=== PATIENT | male | born 1955 | race American Indian/Alaskan Native ===

== ENCOUNTER 2019-07-21 14:42 | Emergency (ER) | payer OTHER ==
[2019-07-21 15:20] VITALS: BP 138/87
[2019-07-21 15:47] LABS: Basophils % (Auto) 0.3 % (0.0-1.8); Hematocrit 40.3 % (35.5-45.6); Hemoglobin 13.5 gm/dl (11.8-15.2); Lymphocytes # (Auto) 0.6 K/mm3 (1.2-5.4); Lymphocytes % (Auto) 13.5 % (13.4-35.0); Mean Corpuscular HGB Conc 34 % (32-34); Mean Corpuscular Volume 100 fl (84-94); Monocytes # (Auto) 0.3 K/mm3 (0.0-0.8); Monocytes % (Auto) 7.4 % (0.0-7.3); Platelet Count 227 K/mm3 (140-440); Red Blood Count 4.04 M/mm3 (3.65-5.03); Red Cell Distribution Width 15.8 % (13.2-15.2)
[2019-07-21 16:00] LABS: Alanine Aminotransferase 30 units/L (7-56); Albumin 4.6 g/dL (3.9-5); BUN/Creatinine Ratio 11; Blood Urea Nitrogen 9 mg/dL (9-20); Calcium 9.5 mg/dL (8.4-10.2); Hemolysis Index 8
[2019-07-21 17:31] LABS: Bacteria,Urine 2+ /HPF (Negative); Bilirubin,Urine NEG (Negative); Blood,Urine NEG (Negative); Color,Urine Straw (Yellow); Mucus,Urine FEW /HPF; Protein,Urine <15 mg/dL mg/dL (Negative); Sperm,Urine 1+ /HPF (NP); WBC,Urine < 1.0 /HPF (0.0-6.0)
[2019-07-21] MEDS ORDERED: ACETAMINOPHEN 325 MG TAB PO ONE (17:54)
[2019-07-21] MEDS ORDERED: SUCRALFATE 1 GM/10 ML ORAL LIQD PO ONE (17:54)
[2019-07-21] MEDS ORDERED: FAMOTIDINE 20 MG TAB PO ONE (17:54)
--- NOTE | 2019-07-21 17:59 | Emergency Department Report ---
ED General Adult HPI - General Chief complaint: Abdominal Pain Stated complaint: ABD PAIN PUI?: No Time Seen by Provider: 07/21/19 17:40 Source: patient, RN notes reviewed, old records reviewed Mode of arrival: Ambulatory Limitations: No Limitations - History of Present Illness Initial comments: The patient is a 63-year-old gentleman. He is not known to myself previously. The patient denies fever, cough, and coronavirus symptomatology. He typically follows with the [facility]. He ran out of his metformin, Glucophage, and multivitamin. He denies a history of abdominal surgeries. He presents to the ER today with complaint of nontraumatic supraumbilical and bandlike mid abdominal pain, cramping in nature, present for 1 day. It does not radiate anywhere, and does not have exacerbating or relieving factors. He denies headache, neck pain, chest pain, shortness of breath, testicular pain, irritative and obstructive urinary symptoms, he has chronic cough, and he endorses that a family member called 911. He also requests for a refill on his aforementioned prescription medications -: Sudden, hour(s) Location: abdomen Severity scale (0 -10): 7 Improves with: none Worsens with: none Associated Symptoms: denies other symptoms - Related Data Previous Rx's Medication Instructions Recorded Last Taken Type Multivitamin with Folic Acid [[facility] 400 mcg PO QDAY #30 tablet 07/21/19 Unknown Rx One Daily Essential Tablet] metFORMIN [Glucophage] 500 mg PO BID #60 tablet 07/21/19 Unknown Rx Allergies Allergy/AdvReac Type Severity Reaction Status Date / Time haloperidol [From Haldol] Allergy Rash Verified 02/04/18 07:59 squash Allergy Rash Verified 02/04/18 07:59 ED Review of Systems ROS: Stated complaint: ABD PAIN Other details as noted in HPI Constitutional: denies: fever Eyes: denies: eye discharge Respiratory: cough. denies: shortness of breath Cardiovascular: denies: chest pain Gastrointestinal: abdominal pain Genitourinary: denies: dysuria Musculoskeletal: denies: back pain Skin: as per HPI Neurological: as per HPI Psychiatric: as per HPI Hematological/Lymphatic: as per HPI ED Past Medical Hx - Past Medical History Previous Medical History?: Yes Hx Hypertension: Yes Hx Diabetes: Yes Hx Arthritis: Yes Additional medical history: smoker - Surgical History Hx Coronary Stent: Yes (x 2) Hx Appendectomy: Yes Additional Surgical History: tonsillectomy - Social History Smoking Status: Current Every Day Smoker Substance Use Type: None - Medications Home Medications: Home Medications Medication Instructions Recorded Confirmed Last Taken Type Multivitamin with Folic Acid [[facility] 400 mcg PO QDAY #30 tablet 07/21/19 Unknown Rx One Daily Essential Tablet] metFORMIN [Glucophage] 500 mg PO BID #60 tablet 07/21/19 Unknown Rx ED Physical Exam - General Limitations: No Limitations General appearance: alert, in no apparent distress - Head Head exam: Present: atraumatic, normocephalic - Eye Eye exam: Present: normal appearance, EOMI. Absent: nystagmus - ENT ENT exam: Present: normal exam, normal orophraynx, mucous membranes moist, no rmal external ear exam - Neck Neck exam: Present: normal inspection, full ROM. Absent: tenderness, meningismus - Respiratory Respiratory exam: Present: normal lung sounds bilaterally. Absent: respiratory distress - Cardiovascular Cardiovascular Exam: Present: regular rate, normal rhythm, normal heart sounds. Absent: bradycardia, tachycardia, irregular rhythm, systolic murmur, diastolic murmur, rubs, gallop - GI/Abdominal GI/Abdominal exam: Present: soft, normal bowel sounds. 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 There is no palpable cord. negative Homans sign. Muscular compartments are soft. The pelvis is stable.). Absent: calf tenderness - Back Exam Back exam: Present: normal inspection, full ROM. Absent: tenderness, CVA tenderness (R), CVA tenderness (L), paraspinal tenderness, vertebral tenderness - Neurological Exam Neurological exam: Present: alert, normal gait, other (No facial droop. Tongue midline. Extraocular movements intact bilaterally. Facial sensation intact to light touch in V1, V2, V3 distribution bilaterally. 5 and a 5 strength in 4 extremities. Sensation intact to light touch in 4 extremities.). Absent: motor sensory deficit - Psychiatric Psychiatric exam: Present: normal affect, normal mood - Skin Skin exam: Present: warm, dry, intact, normal color. Absent: rash ED Course Vital Signs 07/21/19 15:19 Temperature 98 F Pulse Rate 81 Respiratory 18 Rate Blood Pressure 138/87 [Right] O2 Sat by Pulse 99 Oximetry ED Medical Decision Making - Lab Data Result diagrams: 07/21/19 15:30 07/21/19 15:30 Vital Signs 07/21/19 15:19 Temperature 98 F Pulse Rate 81 Respiratory 18 Rate Blood Pressure 138/87 [Right] O2 Sat by Pulse 99 Oximetry Labs 07/21/19 07/21/19 07/21/19 15:30 15:30 17:10 WBC 4.4 L RBC 4.04 Hgb 13.5 Hct 40.3 MCV 100 H MCH 33 H MCHC 34 RDW 15.8 H Plt Count 227 Lymph % (Auto) 13.5 [place] % (Auto) 7.4 H Eos % (Auto) 0.0 Baso % (Auto) 0.3 Lymph # 0.6 L [place] # 0.3 Eos # 0.0 Baso # 0.0 Seg Neutrophils % 78.8 H Seg Neutrophils # 3.5 Sodium 130 L Potassium 4.6 Chloride 88.5 L Carbon Dioxide 25 Anion Gap 21 BUN 9 Creatinine 0.8 Estimated GFR > 60 BUN/Creatinine Ratio 11 Glucose 251 H Calcium 9.5 Total Bilirubin 0.40 AST 39 ALT 30 Alkaline Phosphatase 83 Total Protein 8.3 H Albumin 4.6 Albumin/Globulin Ratio 1.2 Lipase 34 Urine Color Straw Urine Turbidity Clear Urine pH 8.0 H Ur Specific [place] 1.015 Urine Protein <15 mg/dl Urine Glucose (UA) >=500 Urine Ketones Tr Urine Blood Neg Urine Nitrite Neg Urine Bilirubin Neg Urine Urobilinogen 2.0 Ur Leukocyte Esterase Neg Urine WBC (Auto) < 1.0 Urine RBC (Auto) 1.0 Urine Bacteria (Auto) 2+ Urine Mucus Few Urine Yeast (Budding) Few Urine Sperm 1+ - EKG Data -: EKG Interpreted by In EKG shows normal: sinus rhythm, axis, ST-T waves Rate: normal - EKG Data Interpretation: no acute changes, unchanged when compared t 07/21/19 18:03 Sinus rhythm, 74 bpm, normal axis, QTC 443 ms, low voltage, not a STEMI, appears to be unchanged from prior EKG from 02/04/2018. Rate 74 bpm - Medical Decision Making Differential diagnosis, including but not limited to: GERD, gastritis, hiatal hernia, medication refill, constipation, chronic hyperglycemia Assessment and plan: 63-year-old gentleman who is afebrile with reassuring vital signs, with no abdominal tenderness, rebound or guarding, no peritoneal signs, negative Patel sign, negative Rovsing sign, with complaint of nonspecific abdominal pain, without tenderness or concerning physical exam findings. Laboratory studies unremarkable. Patient resting comfortably in stretcher and in no acute distress. EKG unchanged from prior. Based off of his benign exam, as well as other corroborative factors, such as history, physical, laboratory studies, I do not see an indication for emergent imaging at this time. We will refill his medications. He can follow-up with his outpatient primary care doctor. Return precautions are reviewed. Hyponatremia is likely pseudohyponatremia, likely secondary to mild hyperglycemia. Critical care attestation.: If time is entered above; I have spent that time in minutes in the direct care of this critically ill patient, excluding procedure time. ED Disposition Clinical Impression: Hyperglycemia, Medication refill Abdominal pain Qualifiers: Abdominal location: unspecified location Qualified Code(s): R10.9 - Unspecified abdominal pain Disposition: DC- TO HOME OR SELFCARE Is pt being admited?: No Condition: Stable Additional Instructions: Take the medications as prescribed. Avoid consumption of Motrin, ibuprofen, Naprosyn, Aleve, heavy and/or spicy foods. Make certain to adhere to a diabetic diet, patient may reference the [place] [employer] website for instructions on how to consume a proper diabetic diet. Avoid consumption of alcohol, and exposure/consumption of smoke products. Please follow-up with your primary care doctor within the next 7 to 10 days. Please return to the emergency room right away with new pain, worsening pain, migration of pain, projectile vomiting, change in mental status, confusion, inability to tolerate liquid feeds, new, worsened or different symptoms not present on the initial emergency room evaluation peer Referrals: [facility] [Primary Care Provider] - 3-5 Days
[2019-07-21] MEDS ORDERED: SODIUM CHLORIDE 0.9% 500 ML 500 ML IV ONE (18:00)
[2019-07-21] MEDS ORDERED: INSULIN REGULAR, HUMAN 100 UNITS/1 ML IV ONE (18:00)
== END 2019-07-21 18:42 | disposition home or self-care (01) ==
LOC: ED 14:42
DX: E11.65 Type 2 diabetes mellitus with hyperglycemia (principal); R10.9 Unspecified abdominal pain; I10 Essential (primary) hypertension; M19.91 Primary osteoarthritis, unspecified site; Z76.0 Encounter for issue of repeat prescription; F17.200 Nicotine dependence, unspecified, uncomplicated; Z90.49 Acquired absence of other specified parts of digestive tract; Z90.89 Acquired absence of other organs; Z79.84 Long term (current) use of oral hypoglycemic drugs; Z79.899 Other long term (current) drug therapy; Z88.8 Allergy status to other drugs, medicaments and biological substances
CPT/HCPCS: 36415; 80053; 81001; 83690; 85025; 93005

== ENCOUNTER 2019-10-21 14:40 | Emergency (ER) | payer OTHER ==
[2019-10-21] MEDS ORDERED: ONDANSETRON 4 MG/2 ML INJ IV ONE (14:53)
[2019-10-21] MEDS: SODIUM CHLORIDE 0.9% 1000 ML 1,000 ML IV ONE ×2 (14:53→15:19)
[2019-10-21 15:16] LABS: Basophils # (Auto) 0.1 K/mm3 (0.0-0.1); Basophils % (Auto) 1.7 % (0.0-1.8); Eosinophils % (Auto) 0.8 % (0.0-4.3); Hematocrit 38.4 % (35.5-45.6); Hemoglobin 13.5 gm/dl (11.8-15.2); Lymphocytes # (Auto) 1.7 K/mm3 (1.2-5.4); Lymphocytes % (Auto) 31.9 % (13.4-35.0); Mean Corpuscular HGB Conc 35 % (32-34); Mean Corpuscular Volume 101 fl (84-94); Monocytes # (Auto) 0.3 K/mm3 (0.0-0.8); Monocytes % (Auto) 6.5 % (0.0-7.3); Platelet Count 197 K/mm3 (140-440); Red Cell Distribution Width 14.2 % (13.2-15.2)
[2019-10-21 15:43] LABS: Alanine Aminotransferase 125 units/L (7-56); BUN/Creatinine Ratio 13; Blood Urea Nitrogen 15 mg/dL (9-20); Calcium 9.1 mg/dL (8.4-10.2); Hemolysis Index 10
[2019-10-21] MEDS ORDERED: SODIUM CHLORIDE 0.9% 1000 ML 1,000 ML IV ONE ×2 (17:43→17:47)
--- NOTE | 2019-10-21 17:47 | Emergency Department Report ---
ED Alcohol HPI - General Chief Complaint: Nausea/Vomiting/Diarrhea Stated Complaint: NAUSEA/VOMITING/ETOH Time Seen by Provider: 10/21/19 14:52 Source: patient, EMS Mode of arrival: Stretcher Limitations: No Limitations - History of Present Illness Initial Comments: CC: "alcohol" HPI: Mr. Swan is a 64 yo male with hx of HTN, DM and alcohol dependence who presents with alcohol intoxication. EMS called by household member. Patient was discovered laying on the floor actively vomiting. Patient is obviously intoxicated. He told nurse that he drank two bottles of wine. MD Complaint: alcohol intoxication Last Drink: just [employer] Chronic Alcohol Use: Yes Previous Visits for Alcohol Intoxication?: Yes Recent Trauma: No Treatments Prior to Arrival: none - Related Data Previous Rx's Medication Instructions Recorded Last Taken Type Multivitamin with Folic Acid [[facility] 400 mcg PO QDAY #30 tablet 07/21/19 Unknown Rx One Daily Essential Tablet] metFORMIN [Glucophage] 500 mg PO BID #60 tablet 07/21/19 Unknown Rx Allergies Allergy/AdvReac Type Severity Reaction Status Date / Time haloperidol [From Haldol] Allergy Rash Verified 02/04/18 07:59 squash Allergy Rash Verified 02/04/18 07:59 ED Review of Systems ROS: Stated complaint: NAUSEA/VOMITING/ETOH Other details as noted in HPI Comment: Unobtainable due to pts medical conditions (Acute alcohol intoxication) ED Past Medical Hx - Past Medical History Previous Medical History?: Yes Hx Hypertension: Yes Hx Diabetes: Yes Hx Arthritis: Yes Additional medical history: smoker - Surgical History Hx Coronary Stent: Yes (x 2) Hx Appendectomy: Yes Additional Surgical History: tonsillectomy - Social History Smoking Status: Current Every Day Smoker Substance Use Type: Alcohol - Medications Home Medications: Home Medications Medication Instructions Recorded Confirmed Last Taken Type Multivitamin with Folic Acid [[facility] 400 mcg PO QDAY #30 tablet 07/21/19 Unknown Rx One Daily Essential Tablet] metFORMIN [Glucophage] 500 mg PO BID #60 tablet 07/21/19 Unknown Rx ED Physical Exam - General Limitations: No Limitations General appearance: in no apparent distress, other (Sleeping easily arousable, strong odor of alcohol on breath) - Head Head exam: Present: atraumatic, normocephalic - Eye Eye exam: Present: PERRL, conjunctival injection. Absent: scleral icterus - ENT ENT exam: Present: mucous membranes moist - Neck Neck exam: Present: normal inspection, full ROM - Respiratory Respiratory exam: Present: normal lung sounds bilaterally. Absent: respiratory distress, wheezes, rales, rhonchi - Cardiovascular Cardiovascular Exam: Present: regular rate, normal rhythm, normal heart sounds. Absent: systolic murmur, diastolic murmur, rubs, gallop - GI/Abdominal GI/Abdominal exam: Present: soft, normal bowel sounds. Absent: distended, ten derness, guarding, rebound - Rectal Rectal exam: Present: deferred - Extremities Exam Extremities exam: Present: normal inspection - Psychiatric Psychiatric exam: Present: flat affect - Skin Skin exam: Present: warm, dry, intact, normal color. Absent: rash ED Course Vital Signs 10/21/19 10/21/19 10/21/19 14:45 14:46 15:00 Temperature 98.0 F Pulse Rate 80 84 Respiratory 16 14 Rate Blood Pressure 89/50 93/55 Blood Pressure 89/50 [Right] O2 Sat by Pulse 94 97 97 Oximetry 10/21/19 10/21/19 10/21/19 15:07 15:15 15:30 Temperature Pulse Rate 97 H 80 78 Respiratory 18 20 17 Rate Blood Pressure 95/57 95/57 Blood Pressure 86/55 [Right] O2 Sat by Pulse 97 95 96 Oximetry 10/21/19 10/21/19 10/21/19 15:46 16:00 16:15 Temperature Pulse Rate 79 79 80 Respiratory 20 17 21 Rate Blood Pressure 94/55 95/58 95/60 Blood Pressure [Right] O2 Sat by Pulse 95 97 97 Oximetry 10/21/19 10/21/19 10/21/19 16:30 16:46 17:00 Temperature Pulse Rate 93 H 81 86 Respiratory 20 17 22 Rate Blood Pressure 100/65 97/58 105/63 Blood Pressure [Right] O2 Sat by Pulse 98 100 97 Oximetry 10/21/19 10/21/19 10/21/19 17:16 17:30 17:46 Temperature Pulse Rate 84 86 78 Respiratory 18 14 19 Rate Blood Pressure 96/61 99/61 97/59 Blood Pressure [Right] O2 Sat by Pulse 97 100 96 Oximetry 10/21/19 10/21/19 10/21/19 18:00 18:16 18:32 Temperature Pulse Rate 80 83 93 H Respiratory 22 16 15 Rate Blood Pressure 101/60 96/59 97/59 Blood Pressure [Right] O2 Sat by Pulse 94 92 Oximetry 10/21/19 10/21/19 10/21/19 18:46 19:00 19:16 Temperature Pulse Rate 89 88 90 Respiratory 12 15 19 Rate Blood Pressure 105/60 93/51 102/59 Blood Pressure [Right] O2 Sat by Pulse 98 98 98 Oximetry 10/21/19 10/21/19 10/21/19 19:30 19:46 20:15 Temperature Pulse Rate 89 Respiratory 19 Rate Blood Pressure 100/57 100/57 100/57 Blood Pressure [Right] O2 Sat by Pulse 98 95 Oximetry - Reevaluation(s) Reevaluation #1: 10/21/19 19:18 repeat BP 106/59, patient is easily arousable, 10/21/19 19:18 ED Medical Decision Making - Lab Data Result diagrams: 10/21/19 15:00 10/21/19 15:00 Laboratory Results - last 24 hr 10/21/19 10/21/19 10/21/19 15:00 15:00 15:00 WBC 5.3 RBC 3.80 Hgb 13.5 Hct 38.4 MCV 101 H MCH 36 H MCHC 35 H RDW 14.2 Plt Count 197 Lymph % (Auto) 31.9 [place] % (Auto) 6.5 Eos % (Auto) 0.8 Baso % (Auto) 1.7 Lymph # 1.7 [place] # 0.3 Eos # 0.0 Baso # 0.1 Seg Neutrophils % 59.1 Seg Neutrophils # 3.1 Sodium 139 Potassium 3.4 L Chloride 102.9 Carbon Dioxide 13 L Anion Gap 27 BUN 15 Creatinine 1.2 Estimated GFR > 60 BUN/Creatinine Ratio 13 Glucose 86 Calcium 9.1 Total Bilirubin < 0.20 AST 77 H ALT 125 H Alkaline Phosphatase 62 Total Protein 7.0 Albumin 4.0 Albumin/Globulin Ratio 1.3 Plasma/Serum Alcohol 0.31 H - EKG Data -: EKG Interpreted by Pr EKG shows normal: sinus rhythm, axis, intervals, QRS complexes, ST-T waves Rate: normal - EKG Data Interpretation: normal EKG 10/21/19 17:49 EKG obtained according to triage protocol. - Medical Decision Making 1. Acute alcohol intoxication: Patient is protecting airway. Awaiting sobri ety. 2. Hypotension reflective of hypovolemia with alcoholic ketoacidosis: Will be addressed with IV fluid therapy. Anticipate discharge Critical care attestation.: If time is entered above; I have spent that time in minutes in the direct care of this critically ill patient, excluding procedure time. ED Disposition Clinical Impression: Acute alcohol intoxication, Alcoholic ketoacidosis, Dehydration Disposition: DC-01 TO HOME OR SELFCARE Is pt being admited?: No Does the pt Need Aspirin: No Condition: Stable Instructions: Alcohol Intoxication (ED) Referrals: DARIO CASTELLANOS MD [Staff Physician] - 3-5 Days
[2019-10-21 21:46] VITALS: BP 100/57
== END 2019-10-21 23:54 ==
LOC: ED 14:40
DX: F10.129 Alcohol abuse with intoxication, unspecified (principal); E11.10 Type 2 diabetes mellitus with ketoacidosis without coma; E86.0 Dehydration; I10 Essential (primary) hypertension; M19.90 Unspecified osteoarthritis, unspecified site; F17.200 Nicotine dependence, unspecified, uncomplicated; Z90.49 Acquired absence of other specified parts of digestive tract; Z79.899 Other long term (current) drug therapy; Z88.8 Allergy status to other drugs, medicaments and biological substances
CPT/HCPCS: 36415; 80053; 85025; 93005; 96361; 96374; 99284; J2405; J7030; 80320; G0480

== ENCOUNTER 2019-10-31 07:59 | Emergency (ER) | payer OTHER ==
[2019-10-31] MEDS ORDERED: KETOROLAC 60 MG/2 ML INJ IM ONE (08:28)
--- NOTE | 2019-10-31 08:46 | Emergency Department Report ---
ED Fall HPI - General Chief Complaint: Fall Stated Complaint: PAIN ALL OVER Time Seen by Provider: 10/31/19 08:18 Source: patient, old records reviewed Mode of arrival: Ambulatory Limitations: No Limitations - History of Present Illness Initial Comments: 64-year male with a past medical history of arthritis, diabetes, hypertension, smoker, CAD with stent x2 presents to the hospital after a fall downstairs yesterday. Patient states he tripped and fell down 13 stairs and hit the top of his head and passed out. Since he has had a headache, neck pain, and bilateral collarbone pain. Patient denies weakness, numbness, paresthesias to upper lower extremities. He also denies nausea, vomiting, or blurred vision. Overall pain is rated 10/10 intensity and worse with palpation and movement without alleviating factors reported. As per medical record patient has a history of alcohol dependence - Related Data Previous Rx's Medication Instructions Recorded Last Taken Type Multivitamin with Folic Acid [[facility] 400 mcg PO QDAY #30 tablet 07/21/19 Unknown Rx One Daily Essential Tablet] metFORMIN [Glucophage] 500 mg PO BID #60 tablet 07/21/19 Unknown Rx HYDROcodone/APAP 5-325 [[place] 1 each PO Q6HR PRN #10 tablet 10/31/19 Unknown Rx 5/325] Ibuprofen [Motrin] 600 mg PO Q8H PRN #14 tablet 10/31/19 Unknown Rx Allergies Allergy/AdvReac Type Severity Reaction Status Date / Time haloperidol [From Haldol] Allergy Rash Verified 02/04/18 07:59 squash Allergy Rash Verified 02/04/18 07:59 ED Review of Systems ROS: Stated complaint: PAIN ALL OVER Other details as noted in HPI Comment: All other systems reviewed and negative ED Past Medical Hx - Past Medical History Hx Hypertension: Yes Hx Diabetes: Yes Hx Arthritis: Yes Additional medical history: smoker - Surgical History Hx Coronary Stent: Yes (x 2) Hx Appendectomy: Yes Additional Surgical History: tonsillectomy - Social History Smoking Status: Current Every Day Smoker Substance Use Type: Alcohol - Medications Home Medications: Home Medications Medication Instructions Recorded Confirmed Last Taken Type Multivitamin with Folic Acid [[facility] 400 mcg PO QDAY #30 tablet 07/21/19 Unknown Rx One Daily Essential Tablet] metFORMIN [Glucophage] 500 mg PO BID #60 tablet 07/21/19 Unknown Rx HYDROcodone/APAP 5-325 [[place] 1 each PO Q6HR PRN #10 tablet 10/31/19 Unknown Rx 5/325] Ibuprofen [Motrin] 600 mg PO Q8H PRN #14 tablet 10/31/19 Unknown Rx ED Physical Exam - General Limitations: No Limitations - Other Other exam information: General: No acute distress Head: Atraumatic Eyes: normal appearance ENT: Moist mucous membranes Neck: Normal appearance, diffuse midline cervical tenderness and bilateral paraspinal muscles and trapezius muscle tenderness Chest: Clear to auscultation bilaterally. Tenderness to clavicular areas with full range of motion of shoulder CV: Regular rate and rhythm Abdomen: Soft, normal bowel sounds, nontender, nondistended, no rebound or guarding Back: Normal inspection Extremity: Right leg is shortened compared to the left which is chronic. Full range of motion of upper and lower extremities without significant pain. No tenderness to palpation the pelvis Neuro: Alert O x 3, no facial asymmetry, speech clear, no gross motor sensory deficit Psych: Appropriate behavior Skin: No rash ED Course Vital Signs 10/31/19 10/31/19 08:08 10:05 Temperature 97.9 F 98.5 F Pulse Rate 100 H 95 H Respiratory 20 18 Rate Blood Pressure 151/99 180/107 O2 Sat by Pulse 99 98 Oximetry ED Medical Decision Making - Radiology Data Radiology results: report reviewed CT CERVICAL SPINE: 10/31/2019 INDICATION / CLINICAL INFORMATION: fall down 13 steps with loc/neck pain. COMPARISON: 09/17/2019 FINDINGS: CT images of the cervical spine were obtained. Images are evaluated in the axial, coronal, and sagittal planes. There is no evidence of acute abnormality. Reversal of cervical lordosis is centered at the C5 level. Slight left convex scoliosis of the cervical spine is also noted. There is no evidence of acute osseous injury. Degenerative disc and facet changes are present in the mid and lower cervical spine, most pronounced at the C6-7 level.: . CRANIOCERVICAL JUNCTION: Unremarkable. PARASPINAL STRUCTURES: Unremarkable IMPRESSION: No acute abnormality. No change when compared to 09/17/2019. Degenerative changes. XR clavicle BILAT INDICATION / CLINICAL INFORMATION: FALL WITH BILATERAL PAIN. COMPARISON: None available. FINDINGS: No clavicular fracture. Normal alignment. Joint spaces are preserved. No destructive osseous lesion or suspicious periosteal reaction. Impression: 1. No clavicle fracture. CT BRAIN: 10/31/2019 INDICATION / CLINICAL INFORMATION: FALL DOWN 13 STAIRS LOC. COMPARISON: 09/17/2019 FINDINGS: BRAIN/INTRACRANIAL STRUCTURES: Unenhanced CT images of the brain were obtained. There is no evidence of acute intracranial abnormality. Ventricles and sulci are slightly prominent in size, consistent with some diff use cerebral atrophy. There is no evidence of intracranial hemorrhage or mass. There are no abnormal extra-axial fluid collections. Right parietal scalp swelling and hematoma is noted. There is otherwise no significant change compared to prior exam. EXTRACRANIAL STRUCTURES: Unremarkable. IMPRESSION: No acute intracranial abnormality. Critical Care Time: No Critical care attestation.: If time is entered above; I have spent that time in minutes in the direct care of this critically ill patient, excluding procedure time. ED Disposition Clinical Impression: Fall, Musculoskeletal pain, Post-traumatic headache, History of alcohol abuse, Chronic hypertension, Cervical strain, acute Disposition: - TO HOME OR SELFCARE Is pt being admited?: No Does the pt Need Aspirin: No Condition: Stable Instructions: Fall Prevention for Older Adults (ED), Cervical Sprain (ED), Minor Head Injury (ED) Additional Instructions: Take the medication as prescribed. Follow-up with your doctor or doctor/clinic provided. Return if symptoms worsen as indicated by your discharge instructions. Prescriptions: Ibuprofen [Motrin] 600 mg PO Q8H PRN #14 tablet PRN Reason: Pain HYDROcodone/APAP 5-325 [[place] 5/325] 1 each PO Q6HR PRN #10 tablet PRN Reason: Pain Referrals: [facility] [Provider Group] - 3-5 Days Time of Disposition: 10:30
--- NOTE | 2019-10-31 08:54 | XRay Report ---
XR clavicle BILAT INDICATION / CLINICAL INFORMATION: FALL WITH BILATERAL PAIN. COMPARISON: None available. FINDINGS: No clavicular fracture. Normal alignment. Joint spaces are preserved. No destructive osseous lesion or suspicious periosteal reaction. Impression: 1. No clavicle fracture. Signer Name: Nate Mata MD Signed: 10/31/2019 8:50 AM Workstation Name: [id number]
--- NOTE | 2019-10-31 09:29 | Cat Scan Report ---
CT BRAIN: 10/31/2019 INDICATION / CLINICAL INFORMATION: FALL DOWN 13 STAIRS LOC. COMPARISON: 09/17/2019 FINDINGS: BRAIN/INTRACRANIAL STRUCTURES: Unenhanced CT images of the brain were obtained. There is no evidence of acute intracranial abnormality. Ventricles and sulci are slightly prominent in size, consistent with some diffuse cerebral atrophy. There is no evidence of intracranial hemorrhage or mass. There are no abnormal extra-axial fluid ml ections. Right parietal scalp swelling and hematoma is noted. There is otherwise no significant change compare d to prior exam. EXTRACRANIAL STRUCTURES: Unremarkable. IMPRESSION: No acute intracranial abnormality. All CT scans at this location are performed using dose reduction to ALARA by means of automated expos ure control. Signer Name: Chema Valdez MD Signed: 10/31/2019 9:25 AM Workstation Name: [id number]
--- NOTE | 2019-10-31 09:32 | Cat Scan Report ---
CT CERVICAL SPINE: 10/31/2019 INDICATION / CLINICAL INFORMATION: fall down 13 steps with loc/neck pain. COMPARISON: 09/17/2019 FINDINGS: CT images of the cervical spine were obtained. Images are evaluated in the axial, coronal, and sagitt al planes. There is no evidence of acute abnormality. Reversal of cervical lordosis is centered at the C5 level . Slight left convex scoliosis of the cervical spine is also noted. There is no evidence of acute osseous injury. Degenerative disc and facet changes are present in the mid and lower cervical spine, most pronounced at the C6-7 level.: . CRANIOCERVICAL JUNCTION: Unremarkable. PARASPINAL STRUCTURES: Unremarkable IMPRESSION: No acute abnormality. No change when compared to 09/17/2019. Degenerative changes. All CT scans at this location are performed using dose reduction to ALARA by means of automated expos ure control. Signer Name: Chema Valdez MD Signed: 10/31/2019 9:27 AM Workstation Name: [id number]
[2019-10-31] MEDS ORDERED: HYDROcodone/ACETAMINOPHEN 5-325 MG TAB PO ONE (09:46)
[2019-10-31 10:07] VITALS: BP 180/107
== END 2019-10-31 11:19 | disposition home or self-care (01) ==
LOC: ED 07:59
DX: S16.1XXA Strain of muscle, fascia and tendon at neck level, initial encounter (principal); G44.319 Acute post-traumatic headache, not intractable; I10 Essential (primary) hypertension; F10.129 Alcohol abuse with intoxication, unspecified; M79.18 Myalgia, other site; E11.9 Type 2 diabetes mellitus without complications; M13.88 Other specified arthritis, other site; F17.200 Nicotine dependence, unspecified, uncomplicated; Z90.49 Acquired absence of other specified parts of digestive tract; Z95.818 Presence of other cardiac implants and grafts; Z88.6 Allergy status to analgesic agent; Z79.899 Other long term (current) drug therapy; W01.0XXA Fall on same level from slipping, tripping and stumbling without subsequent striking against object, initial encounter; Y93.89 Activity, other specified; Y92.89 Other specified places as the place of occurrence of the external cause; Y99.8 Other external cause status
CPT/HCPCS: 70450; 72125; 73000; 96372; 99285; J1885

== ENCOUNTER 2019-11-14 15:29 | Emergency (ER) | payer OTHER ==
[2019-11-14 16:30] LABS: Amphetamine Screen,Urine Negative; Benzodiazepines Screen,Urine Negative; Cannabinoid Screen,Urine Negative; Cocaine Screen,Urine Negative; Methadone Screen,Urine Negative; Opiate Screen,Urine Negative
[2019-11-14] MEDS ORDERED: THIAMINE 100 MG, FOLIC ACID 1 MG, MULTIPLE VITAMIN INJ, ADULT 10 ML in SODIUM CHLORIDE ... IV ONE (16:30)
[2019-11-14 16:38] LABS: Bacteria,Urine 1+ /HPF (Negative); Bilirubin,Urine NEG (Negative); Blood,Urine NEG (Negative); Color,Urine Colorless (Yellow); Mucus,Urine FEW /HPF; Protein,Urine <15 mg/dL mg/dL (Negative); Urobilinogen,Urine < 2.0 mg/dL (<2.0)
[2019-11-14 16:39] LABS: WBC,Urine < 1.0 /HPF (0.0-6.0)
--- NOTE | 2019-11-14 16:39 | Emergency Department Report ---
<VITOR GIORDANO - Last Filed: 11/15/19 18:25> ED Psych HPI - General Chief Complaint: Psych Stated Complaint: ETOH/SUICIDAL THOUGHTS/PAIN Time Seen by Provider: 11/14/19 16:13 - Related Data Previous Rx's Medication Instructions Recorded Last Taken Type RX: Multivitamin with Folic Acid 400 mcg PO QDAY #30 tablet 07/21/19 Unknown Rx [[facility] One Daily Essential Tablet] RX: metFORMIN [Glucophage] 500 mg PO BID #60 tablet 07/21/19 Unknown Rx HYDROcodone/APAP 5-325 [[place] 1 each PO Q6HR PRN #10 tablet 10/31/19 Unknown Rx 5/325] Ibuprofen [Motrin] 600 mg PO Q8H PRN #14 tablet 10/31/19 Unknown Rx Allergies Allergy/AdvReac Type Severity Reaction Status Date / Time haloperidol [From Haldol] Allergy Rash Verified 11/15/19 07:50 squash Allergy Rash Verified 11/15/19 07:50 ED Past Medical Hx - Medications Home Medications: Home Medications Medication Instructions Recorded Confirmed Last Taken Type RX: Multivitamin with Folic Acid 400 mcg PO QDAY #30 tablet 07/21/19 11/15/19 Unknown Rx [[facility] One Daily Essential Tablet] RX: metFORMIN [Glucophage] 500 mg PO BID #60 tablet 07/21/19 11/15/19 Unknown Rx HYDROcodone/APAP 5-325 [[place] 1 each PO Q6HR PRN #10 tablet 10/31/19 11/15/19 Unknown Rx 5/325] Ibuprofen [Motrin] 600 mg PO Q8H PRN #14 tablet 10/31/19 11/15/19 Unknown Rx ED Medical Decision Making - Lab Data Result diagrams: 11/14/19 16:30 11/14/19 16:30 - Medical Decision Making Patient has been admitted to the [facility] psych unit at this time. ED Disposition Clinical Impression: Acute alcohol intoxication, Alcohol abuse, PTSD (post-traumatic stress disorder), Suicidal ideations, Chronic headache, Medical clearance for psychiatric admission, Post-traumatic headache Disposition: [id number]/TX-65 PSY HOSP/PSY UNIT Is pt being admited?: No Does the pt Need Aspirin: No Condition: Stable <GARY BROWN - Last Filed: 11/15/19 20:42> ED Psych HPI - General Source: patient Mode of arrival: Stretcher Limitations: No Limitations - History of Present Illness Initial Comments: 64-year-old male with past medical history of alcohol abuse, depression, PTSD, diabetes, hypertension, CAD with stent x2 presents to the hospital complaining of acute alcohol intoxication, depression, and having increased generalized flashbacks back to the [place] triggering suicidal ideation. Patient also complains of persistent headache and neck pain since fall down the stairs when he was initiated body here October 30. Patient was actually seen by me and received CAT scans of the head and cervical spine that were unremarkable for acu te injury. Patient states he was subsequently evaluated at the [facility] with the same complaints and had repeat unremarkable scans. Patient is frustrated because he continues to have daily headaches. He denies more recent injury. He is currently taking hydrocodone for pain. He currently cannot recall the other 10 medication he is currently taking. Patient drinks alcohol daily but denies history of alcohol withdrawal tremors or seizures. He states he is having flashbacks of his friends being murdered while serving in the [employer] war and is tearful every time he refers to this memory during interview. Patient did not endorse a suicidal plan ED Review of Systems ROS: Stated complaint: ETOH/SUICIDAL THOUGHTS/PAIN Other details as noted in HPI Comment: All other systems reviewed and negative ED Past Medical Hx - Past Medical History Previous Medical History?: Yes Hx Hypertension: Yes Hx Diabetes: Yes Hx Arthritis: Yes Hx Psychiatric Treatment: Yes (PTSD, Depression) Additional medical history: Glaucoma - Surgical History Past Surgical History?: Yes Hx Coronary Stent: Yes (x 2) Hx Appendectomy: Yes Additional Surgical History: tonsillectomy, RLE trauma - Social History Smoking Status: Current Every Day Smoker Substance Use Type: Alcohol, Prescribed ED Physical Exam - General Limitations: No Limitations - Other Other exam information: General: No acute distress Head: Atraumatic Eyes: normal appearance ENT: Moist mucous membranes Neck: Normal appearance, no midline tenderness Chest: Clear to auscultation bilaterally CV: Regular rate and rhythm Abdomen: Soft, normal bowel sounds, nontender, nondistended, no rebound or guarding Back: Normal inspection Extremity: Normal inspection, full range of motion Neuro: Alert O x 3, no facial asymmetry, speech clear, no gross motor sensory deficit Psych: Depressed, tearful Skin: No rash ED Course Vital Signs 09/25/20 09/25/20 09/26/20 15:55 19:34 00:25 Temperature 97.2 F L 98.1 F 98.0 F Pulse Rate 89 96 H 109 H Respiratory 20 18 18 Rate Blood Pressure 129/81 141/85 151/79 [Left] O2 Sat by Pulse 100 98 95 Oximetry 11/15/19 11/15/19 11/15/19 00:41 01:11 02:00 Temperature 98.0 F Pulse Rate 82 Respiratory 18 18 16 Rate Blood Pressure 134/78 [Left] O2 Sat by Pulse 98 Oximetry 11/15/19 11/15/19 11/15/19 07:25 08:00 14:00 Temperature 98.2 F Pulse Rate 91 H 97 H 95 H Respiratory 18 18 18 Rate Blood Pressure 156/98 146/91 163/89 [Left] O2 Sat by Pulse 98 98 99 Oximetry ED Medical Decision Making - Lab Data Result diagrams: 11/14/19 16:30 11/14/19 16:30 Lab Results 11/14/19 11/14/19 11/14/19 Range/Units 15:57 16:30 16:30 WBC (4.5-11.0) K/mm3 RBC (3.65-5.03) M/mm3 Hgb (11.8-15.2) gm/dl Hct (35.5-45.6) % MCV (84-94) fl MCH (28-32) pg MCHC (32-34) % RDW (13.2-15.2) % Plt Count (140-440) K/mm3 Lymph % (Auto) (13.4-35.0) % [place] % (Auto) (0.0-7.3) % Eos % (Auto) (0.0-4.3) % Baso % (Auto) (0.0-1.8) % Lymph # (Auto) (1.2-5.4) K/mm3 [place] # (Auto) (0.0-0.8) K/mm3 Eos # (Auto) (0.0-0.4) K/mm3 Baso # (Auto) (0.0-0.1) K/mm3 Seg Neutrophils % (40.0-70.0) % Seg Neutrophils # (1.8-7.7) K/mm3 Sodium (137-145) mmol/L Potassium (3.6-5.0) mmol/L Chloride (98-107) mmol/L Carbon Dioxide (22-30) mmol/L Anion Gap mmol/L BUN (9-20) mg/dL Creatinine (0.8-1.3) mg/dL Estimated GFR ml/min BUN/Creatinine Ratio % Glucose (75-100) mg/dL Calcium (8.4-10.2) mg/dL Magnesium (1.7-2.3) mg/dL Urine Color Colorless (Yellow) Urine Turbidity Clear (Clear) Urine pH 6.0 (5.0-7.0) Ur Specific [place] 1.000 L (1.003-1.030) Urine Protein <15 mg/dl (Negative) mg/dL Urine Glucose (UA) >=500 (Negative) mg/dL Urine Ketones Neg (Negative) mg/dL Urine Blood Neg (Negative) Urine Nitrite Neg (Negative) Urine Bilirubin Neg (Negative) Urine Urobilinogen < 2.0 (<2.0) mg/dL Ur Leukocyte Esterase Neg (Negative) Urine WBC (Auto) < 1.0 (0.0-6.0) /HPF Urine RBC (Auto) 1.0 (0.0-6.0) /HPF Urine Bacteria (Auto) 1+ (Negative) /HPF Urine Mucus Few /HPF Salicylates < 0.3 L (2.8-20.0) mg/dL Urine Opiates Screen Urine Methadone Screen Acetaminophen 5.0 L (10.0-30.0) ug/mL Ur Barbiturates Screen Ur Phencyclidine Scrn Ur Amphetamines Screen U Benzodiazepines Scrn Urine Cocaine Screen U Marijuana (THC) Screen Drugs of Abuse Note Plasma/Serum Alcohol (0-0.07) % 11/14/19 11/14/19 11/14/19 Range/Units 16:30 16:30 16:30 WBC 3.9 L (4.5-11.0) K/mm3 RBC 4.27 (3.65-5.03) M/mm3 Hgb 15.0 (11.8-15.2) gm/dl Hct 43.5 (35.5-45.6) % MCV 102 H (84-94) fl MCH 35 H (28-32) pg MCHC 34 (32-34) % RDW 14.2 (13.2-15.2) % Plt Count 230 (140-440) K/mm3 Lymph % (Auto) 34.5 (13.4-35.0) % [place] % (Auto) 7.2 (0.0-7.3) % Eos % (Auto) 0.2 (0.0-4.3) % Baso % (Auto) 0.7 (0.0-1.8) % Lymph # (Auto) 1.3 (1.2-5.4) K/mm3 [place] # (Auto) 0.3 (0.0-0.8) K/mm3 Eos # (Auto) 0.0 (0.0-0.4) K/mm3 Baso # (Auto) 0.0 (0.0-0.1) K/mm3 Seg Neutrophils % 57.4 (40.0-70.0) % Seg Neutrophils # 2.2 (1.8-7.7) K/mm3 Sodium 137 (137-145) mmol/L Potassium 4.4 (3.6-5.0) mmol/L Chloride 98.4 (98-107) mmol/L Carbon Dioxide 20 L (22-30) mmol/L Anion Gap 23 mmol/L BUN 7 L (9-20) mg/dL Creatinine 0.8 (0.8-1.3) mg/dL Estimated GFR > 60 ml/min BUN/Creatinine Ratio 9 % Glucose 214 H (75-100) mg/dL Calcium 9.3 (8.4-10.2) mg/dL Magnesium 2.30 (1.7-2.3) mg/dL Urine Color (Yellow) Urine Turbidity (Clear) Urine pH (5.0-7.0) Ur Specific [place] (1.003-1.030) Urine Protein (Negative) mg/dL Urine Glucose (UA) (Negative) mg/dL Urine Ketones (Negative) mg/dL Urine Blood (Negative) Urine Nitrite (Negative) Urine Bilirubin (Negative) Urine Urobilinogen (<2.0) mg/dL Ur Leukocyte Esterase (Negative) Urine WBC (Auto) (0.0-6.0) /HPF Urine RBC (Auto) (0.0-6.0) /HPF Urine Bacteria (Auto) (Negative) /HPF Urine Mucus /HPF Salicylates (2.8-20.0) mg/dL Urine Opiates Screen Urine Methadone Screen Acetaminophen (10.0-30.0) ug/mL Ur Barbiturates Screen Ur Phencyclidine Scrn Ur Amphetamines Screen U Benzodiazepines Scrn Urine Cocaine Screen U Marijuana (THC) Screen Drugs of Abuse Note Plasma/Serum Alcohol 0.25 H (0-0.07) % 11/14/19 Range/Units Unknown WBC (4.5-11.0) K/mm3 RBC (3.65-5.03) M/mm3 Hgb (11.8-15.2) gm/dl Hct (35.5-45.6) % MCV (84-94) fl MCH (28-32) pg MCHC (32-34) % RDW (13.2-15.2) % Plt Count (140-440) K/mm3 Lymph % (Auto) (13.4-35.0) % [place] % (Auto) (0.0-7.3) % Eos % (Auto) (0.0-4.3) % Baso % (Auto) (0.0-1.8) % Lymph # (Auto) (1.2-5.4) K/mm3 [place] # (Auto) (0.0-0.8) K/mm3 Eos # (Auto) (0.0-0.4) K/mm3 Baso # (Auto) (0.0-0.1) K/mm3 Seg Neutrophils % (40.0-70.0) % Seg Neutrophils # (1.8-7.7) K/mm3 Sodium (137-145) mmol/L Potassium (3.6-5.0) mmol/L Chloride (98-107) mmol/L Carbon Dioxide (22-30) mmol/L Anion Gap mmol/L BUN (9-20) mg/dL Creatinine (0.8-1.3) mg/dL Estimated GFR ml/min BUN/Creatinine Ratio % Glucose (75-100) mg/dL Calcium (8.4-10.2) mg/dL Magnesium (1.7-2.3) mg/dL Urine Color (Yellow) Urine Turbidity (Clear) Urine pH (5.0-7.0) Ur Specific [place] (1.003-1.030) Urine Protein (Negative) mg/dL Urine Glucose (UA) (Negative) mg/dL Urine Ketones (Negative) mg/dL Urine Blood (Negative) Urine Nitrite (Negative) Urine Bilirubin (Negative) Urine Urobilinogen (<2.0) mg/dL Ur Leukocyte Esterase (Negative) Urine WBC (Auto) (0.0-6.0) /HPF Urine RBC (Auto) (0.0-6.0) /HPF Urine Bacteria (Auto) (Negative) /HPF Urine Mucus /HPF Salicylates (2.8-20.0) mg/dL Urine Opiates Screen Negative Urine Methadone Screen Negative Acetaminophen (10.0-30.0) ug/mL Ur Barbiturates Screen Negative Ur Phencyclidine Scrn Negative Ur Amphetamines Screen Negative U Benzodiazepines Scrn Negative Urine Cocaine Screen Negative U Marijuana (THC) Screen Negative Drugs of Abuse Note Disclamer Plasma/Serum Alcohol (0-0.07) % - Radiology Data Radiology results: report reviewed CT head/brain wo con INDICATION / CLINICAL INFORMATION: 64 years Male; persistant post traumatic headache, etoh abuse. TECHNIQUE: Routine CT head without contrast. All CT scans at this location are performed using CT dose reduction for ALARA by means of automated exposure control. COMPARISON: 10/31/2019 FINDINGS: BRAIN / INTRACRANIAL CONTENTS: Small lacunar infarcts seen in the inferior gangliocapsular region on the right-unchanged from prior. Otherwise, no acute hemorrhage, mass effect, midline shift, hydrocephalus, or acute, large territorial infarct. No chronic infarct or atrophy appreciated. No significant white matter abnormality. CRANIOCERVICAL JUNCTION: No significant abnormality. ORBITS: Small prosthesis is seen in expected location of the lacrimal gland on the right-please clinically correlate. This is unchanged from prior. SINUSES / MASTOIDS: Mild to moderate mucosal thickening seen in the ethmoids. There is also mild mucosal thickening in the mastoid air cells on the right. ADDITIONAL FINDINGS: Atherosclerotic disease is seen in the anterior and posterior circulation. IMPRESSION: 1. No focal mass, hemorrhage, hydrocephalus, or acute, large territorial infarct. - Medical Decision Making Patient here on a 1013 for suicidal ideation with alcohol abuse. Patient having a persistent posttraumatic headache. Repeat CT performed given that patient is alcoholic and at risk for recurrent falls and subdural. Repeat CT head unremarkable. Labs only remarkable for acute alcohol intoxication. Patient did receive a banana bag in the ED. CIWA protocol in effect. Patient is medically clear for inpatient psychiatric admission and has been accepted pending COVID testing Critical Care Time: No Critical care attestation.: If time is entered above; I have spent that time in minutes in the direct care of this critically ill patient, excluding procedure time. ED Disposition Is pt being admited?: Yes Time of Disposition: 23:17
[2019-11-14 17:08] LABS: Basophils % (Auto) 0.7 % (0.0-1.8); Eosinophils % (Auto) 0.2 % (0.0-4.3); Hematocrit 43.5 % (35.5-45.6); Lymphocytes # (Auto) 1.3 K/mm3 (1.2-5.4); Lymphocytes % (Auto) 34.5 % (13.4-35.0); Mean Corpuscular HGB Conc 34 % (32-34); Mean Corpuscular Volume 102 fl (84-94); Monocytes # (Auto) 0.3 K/mm3 (0.0-0.8); Monocytes % (Auto) 7.2 % (0.0-7.3); Platelet Count 230 K/mm3 (140-440); Red Blood Count 4.27 M/mm3 (3.65-5.03); Red Cell Distribution Width 14.2 % (13.2-15.2)
[2019-11-14 17:14] LABS: BUN/Creatinine Ratio 9; Blood Urea Nitrogen 7 mg/dL (9-20); Calcium 9.3 mg/dL (8.4-10.2); Hemolysis Index 10
--- NOTE | 2019-11-14 18:39 | Cat Scan Report ---
CT head/brain wo con INDICATION / CLINICAL INFORMATION: 64 years Male; persistant post traumatic headache, etoh abuse. TECHNIQUE: Routine CT head without contrast. All CT scans at this location are performed using CT dos e reduction for ALARA by means of automated exposure control. COMPARISON: 10/31/2019 FINDINGS: BRAIN / INTRACRANIAL CONTENTS: Small lacunar infarcts seen in the inferior gangliocapsular region on the right-unchanged from prior. Otherwise, no acute hemorrhage, mass effect, midline shift, hydrocephalus, or acute, large territori al infarct. No chronic infarct or atrophy appreciated. No significant white matter abnormality. CRANIOCERVICAL JUNCTION: No significant abnormality. ORBITS: Small prosthesis is seen in expected location of the lacrimal gland on the right-please clini robert correlate. This is unchanged from prior. SINUSES / MASTOIDS: Mild to moderate mucosal thickening seen in the ethmoids. There is also mild muco geoffrey thickening in the mastoid air cells on the right. ADDITIONAL FINDINGS: Atherosclerotic disease is seen in the anterior and posterior circulation. IMPRESSION: 1. No focal mass, hemorrhage, hydrocephalus, or acute, large territorial infarct. Signer Name: Shad Downing MD, III Signed: 11/14/2019 6:35 PM Workstation Name: [id number]
[2019-11-14] MEDS ORDERED: LORazepam 2 MG/ML VIAL IV PRN ×2 (19:47)
[2019-11-15] MEDS ORDERED: FAMOTIDINE 20 MG/2 ML INJ IV ONE (00:32)
[2019-11-15] MEDS ORDERED: KETOROLAC 30 MG/1 ML INJ IV ONE (00:32)
--- NOTE | 2019-11-15 10:40 | Consultation ---
History of Present Illness - Reason for Consult Consult date: 11/15/19 Reason for consult: Flashbacks, depression, SI - History of Present Psychiatric Illness The patient's medical record was reviewed and the patient's progress was discussed with the nursing staff. Breonna Swan is a 64y/o male who presented to the ER with depression, and flashbacks that trigger suicidal thoughts. During my interview with the patient he is lying down awake. He is a/o x 2. He makes poor eye contact. He says he came to the ER because he "wasn't feeling good." He verbalizes being "d epressed." When asked about SI/HI, the patient states "yes, when I start to think about things." He denies hallucinations, and states "just flashbacks." The patient says he has a history of "bipolar and PTSD." He could not recall any of his meds. He says "I had two beers I didn't think it would do all of this." He says he had "25oz of alcohol the other day." The patient denies eery attempt suicide in the past or any psychiatric admissions. When asked about the patient's mood, he says "I just feel like I want to rest." PAST PSYCHIATRIC HISTORY: Diagnoses: Bipolar and PTSD Suicide attempts or Self-harm behavior: Denies Prior psychiatric hospitalizations: Denies Substance Abuse history: Denies Previous psychiatric medications tried: Could not recall Outpatient treatment: Yes PAST MEDICAL HISTORY: Family Psychiatric History: None reported or documented SOCIAL HISTORY Marital Status: Living Arrangements: Lives with sister Employment Status: Disabled Access to guns/weapons: Denies Education: 12th History of Abuse: none reported Legal History: Denies REVIEW OF SYSTEMS Constitutional: Negative for weight loss ENT: Negative for stridor Respiratory: Negative for cough or hemoptysis All other systems reviewed and are negative MENTAL STATUS EXAMINATION General Appearance: Dressed appropriately Behavior: Calm and cooperative, poor eye contact Mood: "Like I want to rest" Affect and affective range: Congruent with stated mood Thought Process: goal directed Speech: normal tone and pace Suicidal Ideation: Yes Homicidal Ideation: Denies Hallucinations: "flashbacks" Delusions: None elicited Insight and Judgment: Limited Memory/Cognition: Limited Attention: Normal Orientation: Alert, oriented x 2 Assessment Bipolar Disorder PLAN Olanzpine 2.5mg po daily Depakote DR 125mg po BID Zoloft 25mg po daily Sitter: Defer to primary Medical: Per primary Disposition: Recommend acute inpatient treatment. Will follow. Thank you for this consult Medications and Allergies Allergies Allergy/AdvReac Type Severity Reaction Status Date / Time haloperidol [From Haldol] Allergy Rash Verified 11/15/19 07:50 squash Allergy Rash Verified 11/15/19 07:50 Home Medications Medication Instructions Recorded Confirmed Last Taken Type Multivitamin with Folic Acid [[facility] 400 mcg PO QDAY #30 tablet 07/21/19 Unknown Rx One Daily Essential Tablet] metFORMIN [Glucophage] 500 mg PO BID #60 tablet 07/21/19 Unknown Rx HYDROcodone/APAP 5-325 [[place] 1 each PO Q6HR PRN #10 tablet 10/31/19 Unknown Rx 5/325] Ibuprofen [Motrin] 600 mg PO Q8H PRN #14 tablet 10/31/19 Unknown Rx Active Meds: Active Medications Lorazepam (Ativan) 2 mg IV Q1HR PRN PRN Reason: CIWA-Ar 8-15 Lorazepam (Ativan) 4 mg IV Q1HR PRN PRN Reason: CIWA-Ar 16-25 Mental Status Exam - Vital signs Last Vital Signs Temp 98.0 F 11/15/19 02:00 Pulse 91 H 11/15/19 07:25 Resp 18 11/15/19 07:25 BP 156/98 11/15/19 07:25 Pulse Ox 98 11/15/19 07:25 Results Result Diagrams: 11/14/19 16:30 11/14/19 16:30 Abnormal lab results 11/14/19 11/14/19 11/14/19 Range/Units 15:57 16:30 16:30 WBC (4.5-11.0) K/mm3 MCV (84-94) fl MCH (28-32) pg Carbon Dioxide (22-30) mmol/L BUN (9-20) mg/dL Glucose (75-100) mg/dL Ur Specific [place] 1.000 L (1.003-1.030) Salicylates < 0.3 L (2.8-20.0) mg/dL Acetaminophen 5.0 L (10.0-30.0) ug/mL Plasma/Serum Alcohol (0-0.07) % 11/14/19 11/14/19 11/14/19 Range/Units 16:30 16:30 16:30 WBC 3.9 L (4.5-11.0) K/mm3 MCV 102 H (84-94) fl MCH 35 H (28-32) pg Carbon Dioxide 20 L (22-30) mmol/L BUN 7 L (9-20) mg/dL Glucose 214 H (75-100) mg/dL Ur Specific [place] (1.003-1.030) Salicylates (2.8-20.0) mg/dL Acetaminophen (10.0-30.0) ug/mL Plasma/Serum Alcohol 0.25 H (0-0.07) % All other labs normal.
[2019-11-15] MEDS ORDERED: SERTRALINE 25 MG TAB PO SCH (11:00)
[2019-11-15] MEDS ORDERED: DIVALPROEX DR 125 MG TAB PO SCH (11:00)
[2019-11-15 16:26] VITALS: BP 163/89
[2019-11-15] MEDS ORDERED: metFORMIN 500 MG TAB PO SCH (22:00)
[2019-11-15] MEDS ORDERED: metFORMIN 500 MG TAB ONE (22:51)
== END 2019-11-15 20:39 ==
LOC: ED 15:29 → EEVIPCON 15:29 → ED 11-15 20:39
DX: R45.851 Suicidal ideations (principal); F10.129 Alcohol abuse with intoxication, unspecified; G44.309 Post-traumatic headache, unspecified, not intractable; I10 Essential (primary) hypertension; E11.9 Type 2 diabetes mellitus without complications; M19.91 Primary osteoarthritis, unspecified site; F43.10 Post-traumatic stress disorder, unspecified; F17.200 Nicotine dependence, unspecified, uncomplicated; Z04.6 Encounter for general psychiatric examination, requested by authority; Z90.49 Acquired absence of other specified parts of digestive tract; Z98.890 Other specified postprocedural states; Z90.89 Acquired absence of other organs; Z79.1 Long term (current) use of non-steroidal anti-inflammatories (NSAID); Z79.84 Long term (current) use of oral hypoglycemic drugs; Z79.899 Other long term (current) drug therapy; Z88.8 Allergy status to other drugs, medicaments and biological substances
CPT/HCPCS: 36415; 70450; 80048; 80307; 81001; 82962; 83735; 85025; 96365; 96366; 96375; 99285; J1885; J3411; J7030; U0003; 80320; G0480

== ENCOUNTER 2019-12-11 18:35 | Emergency (ER) | payer OTHER ==
--- NOTE | 2019-12-11 20:40 | Emergency Department Report ---
HPI - General Chief Complaint: Alcohol Time Seen by Provider: 12/11/19 20:19 - HPI HPI: Room 10 The patient is a 64-year-old male present with a chief complaint of alcohol intoxication. The patient states he does not remember what happened but his sister called the paramedics. Patient admits to consuming 224 ounce beers today. I attempted to call the only contact available from the patient's demographics which is his daughter at [phone] however went straight to [facility] Message was left requesting call back for further info. When asked how he is feeling the patient initially replies "I feel great "but then states he feels slightly lightheaded ED Past Medical Hx - Past Medical History Previous Medical History?: Yes Hx Hypertension: Yes Hx Diabetes: Yes Hx Psychiatric Treatment: Yes (PTSD, Depression) Additional medical history: Glaucoma, coronary artery disease - Surgical History Past Surgical History?: Yes Hx Coronary Stent: Yes (x 2) Hx Appendectomy: Yes Additional Surgical History: tonsillectomy, RLE trauma - Family History Family history: no significant - Social History Smoking Status: Current Every Day Smoker (3 cigarettes daily) Substance Use Type: None (Denies illicit drug use), Alcohol (Occasional) - Medications Home Medications: Home Medications Medication Instructions Recorded Confirmed Last Taken Type Multivitamin with Folic Acid [[facility] 400 mcg PO QDAY #30 tablet 07/21/19 11/16/19 Unknown Rx One Daily Essential Tablet] metFORMIN [Glucophage] 500 mg PO BID #60 tablet 07/21/19 11/16/19 Unknown Rx HYDROcodone/APAP 5-325 [[place] 1 each PO Q6HR PRN #10 tablet 10/31/19 11/16/19 Unknown Rx 5-325 mg TAB] Ibuprofen [Motrin 600 MG tab] 600 mg PO Q8H PRN #14 tablet 10/31/19 11/16/[address] [Haley Dr] 250 mg PO BID #60 tablet 11/19/19 Unknown Rx Melatonin [Melatonin 5MG TAB] 5 mg PO QHS PRN #30 tablet 11/19/19 Unknown Rx Sertraline [Zoloft] 25 mg PO QDAY #30 tablet 11/19/19 Unknown Rx lisinopriL [Zestril TAB] 10 mg PO QDAY #30 tablet 11/19/19 Unknown Rx traZODone [Desyrel] 75 mg PO QHS #30 tablet 11/19/19 Unknown Rx ED Review of Systems ROS: Stated complaint: INTOXICATED/NO MEDICAL COMPLAINT Other details as noted in HPI Constitutional: no symptoms reported Respiratory: no symptoms reported Endocrine: no symptoms reported Neurological: other (Lightheadedness) Physical Exam - Physical Exam Vital Signs: Vital Signs 12/11/19 19:30 Temperature 97.3 F L Pulse Rate 74 Respiratory 16 Rate Blood Pressure 106/74 [Right] O2 Sat by Pulse 99 Oximetry Physical Exam: GENERAL: The patient is well-developed well-nourished male lying on stretcher not appearing to be in acute distress. [] HEENT: Normocephalic. Atraumatic. Extraocular motions are intact. Patient has moist mucous membranes. NECK: Supple. Trachea midline CHEST/LUNGS: Clear to auscultation. There is no respiratory distress noted. HEART/CARDIOVASCULAR: Regular. There is no tachycardia. There is no gallop rub or murmur. ABDOMEN: Abdomen is soft, nontender. Patient has normal bowel sounds. There is no abdominal distention. SKIN: There is no rash. There is no edema. There is no diaphoresis. NEURO: The patient is awake and oriented. The patient behaves like he is intoxicated. The patient is cooperative. The patient has no focal neurologic deficits. MUSCULOSKELETAL:There is no evidence of acute injury. ED Course Vital Signs 12/11/19 19:30 Temperature 97.3 F L Pulse Rate 74 Respiratory 16 Rate Blood Pressure 106/74 [Right] O2 Sat by Pulse 99 Oximetry ED Medical Decision Making - Lab Data Result diagrams: 12/11/19 20:43 12/11/19 20:43 Laboratory Tests 12/11/19 12/11/19 12/11/19 20:43 20:43 20:43 WBC 3.0 L RBC 3.96 Hgb 13.8 Hct 41.1 MCV 104 H MCH 35 H MCHC 34 RDW 13.8 Plt Count 121 L Moca % (Auto) Water Pollution Control Inspector Add Manual Diff Complete Total Counted 100 Seg Neuts % (Manual) 45.0 Band Neutrophils % 0 Lymphocytes % (Manual) 41.0 H Reactive Lymphs % (Man) 0 Monocytes % (Manual) 14.0 H Eosinophils % (Manual) 0 Basophils % (Manual) 0 Metamyelocytes % 0 Myelocytes % 0 Promyelocytes % 0 Blast Cells % 0 Nucleated RBC % Not Reportable Seg Neutrophils # Man 1.4 L Band Neutrophils # 0.0 Lymphocytes # (Manual) 1.2 Abs React Lymphs (Man) 0.0 Monocytes # (Manual) 0.4 Eosinophils # (Manual) 0.0 Basophils # (Manual) 0.0 Metamyelocytes # 0.0 Myelocytes # 0.0 Promyelocytes # 0.0 Blast Cells # 0.0 WBC Morphology Not Reportable Hypersegmented Neuts Not Reportable Hyposegmented Neuts Not Reportable Hypogranular Neuts Not Reportable Smudge Cells Not Reportable Toxic Granulation Not Reportable Toxic Vacuolation Not Reportable Dohle Bodies Not Reportable Pelger-Huet Anomaly Not Reportable Willian Rods Not Reportable Platelet Estimate Consistent w auto Clumped Platelets Not Reportable Plt Clumps, EDTA Not Reportable Large Platelets Not Reportable Giant Platelets Not Reportable Platelet Satelliting Not Reportable Plt Morphology Comment Not Reportable RBC Morphology Not Reportable Dimorphic RBCs Not Reportable Polychromasia Not Reportable Hypochromasia Not Reportable Poikilocytosis Not Reportable Anisocytosis Not Reportable Microcytosis Not Reportable Macrocytosis Not Reportable Spherocytes Not Reportable Pappenheimer Bodies Not Reportable Sickle Cells Not Reportable Target Cells Not Reportable Tear Drop Cells Not Reportable Ovalocytes Rare Helmet Cells Not Reportable Jaramillo-Shongal[place] Bodies Not Reportable Aurora Rings Not Reportable Lisa Cells Not Reportable Bite Cells Not Reportable Crenated Cell Not Reportable Elliptocytes Not Reportable Acanthocytes (Spur) Not Reportable Rouleaux Not Reportable Hemoglobin C Crystals Not Reportable Schistocytes Not Reportable Malaria parasites Not Reportable Justus Bodies Not Reportable Hem Pathologist Commnt No Sodium 138 Potassium 4.0 Chloride 101.4 Carbon Dioxide 17 L Anion Gap 24 BUN 13 Creatinine 0.9 Estimated GFR > 60 BUN/Creatinine Ratio 14 Glucose 157 H Calcium 9.1 Total Bilirubin 0.20 AST 97 H ALT 169 H Alkaline Phosphatase 66 Total Creatine Kinase CK-MB (CK-2) CK-MB (CK-2) Rel Index Troponin T Total Protein 7.1 Albumin 3.9 Albumin/Globulin Ratio 1.2 Plasma/Serum Alcohol 0.22 H 12/11/19 20:48 WBC RBC Hgb Hct MCV MCH MCHC RDW Plt Count Moca % (Auto) Add Manual Diff Total Counted Seg Neuts % (Manual) Band Neutrophils % Lymphocytes % (Manual) Reactive Lymphs % (Man) Monocytes % (Manual) Eosinophils % (Manual) Basophils % (Manual) Metamyelocytes % Myelocytes % Promyelocytes % Blast Cells % Nucleated RBC % Seg Neutrophils # Man Band Neutrophils # Lymphocytes # (Manual) Abs React Lymphs (Man) Monocytes # (Manual) Eosinophils # (Manual) Basophils # (Manual) Metamyelocytes # Myelocytes # Promyelocytes # Blast Cells # WBC Morphology Hypersegmented Neuts Hyposegmented Neuts Hypogranular Neuts Smudge Cells Toxic Granulation Toxic Vacuolation Dohle Bodies Pelger-Huet Anomaly Willian Rods Platelet Estimate Clumped Platelets Plt Clumps, EDTA Large Platelets Giant Platelets Platelet Satelliting Plt Morphology Comment RBC Morphology Dimorphic RBCs Polychromasia Hypochromasia Poikilocytosis Anisocytosis Microcytosis Macrocytosis Spherocytes Pappenheimer Bodies Sickle Cells Target Cells Tear Drop Cells Ovalocytes Helmet Cells Jaramillo-Sh[place]al[place] Bodies Aurora Rings [place] Cells Bite Cells Crenated Cell Elliptocytes Acanthocytes (Spur) Rouleaux Hemoglobin C Crystals Schistocytes Malaria parasites Justus Bodies Hem Pathologist Commnt Sodium Potassium Chloride Carbon Dioxide Anion Gap BUN Creatinine Estimated GFR BUN/Creatinine Ratio Glucose Calcium Total Bilirubin AST ALT Alkaline Phosphatase Total Creatine Kinase 49 L CK-MB (CK-2) 1.7 CK-MB (CK-2) Rel Index 3.4 Troponin T < 0.010 Total Protein Albumin Albumin/Globulin Ratio Plasma/Serum Alcohol - EKG Data -: EKG Interpreted by Ia EKG shows normal: sinus rhythm Rate: normal - EKG Data When compared to previous EKG there are: previous EKG unavailable Interpretation: other (No ischemic changes seen) - Radiology Data Radiology results: report reviewed (CT head), image reviewed (CT head) Findings [facility] [address] [place] [address] Cat Scan Report Signed Patient: REGGIE TORREZ MR#: [id number] : 1955 Acct:[id number] Age/Sex: 64 / M ADM Date: 12/11/19 Loc: ED Attending Dr: Ordering Physician: TIGRE SEGOVIA MD Date of Service: 12/11/19 Procedure(s): CT head/brain wo con Accession Number(s): [id number] cc: TIGRE SEGOVIA MD . CT head/brain wo [facility] INDICATION / CLINICAL INFORMATION: 64 years Male; Patient complains of lightheadedness. TECHNIQUE: Routine CT head without contrast. All CT scans at this location are performed using CT dose reduction for ALARA by means of automated exposure control. COMPARISON: 11/14/2019 FINDINGS: BRAIN / INTRACRANIAL CONTENTS: No acute hemorrhage, mass effect, midline shift, hydrocephalus, or acute, large territorial infarct. Mild cerebral atrophy noted. There are minimal areas of decreased attenuation in the white matter of the cerebral hemispheres. These are nonspecific findings and may be related to microangiopathy (hypertension, diabetes, ath erosclerosis), given the patient's age. CRANIOCERVICAL JUNCTION: No significant abnormality. ORBITS: No significant abnormality of visualized orbits. SINUSES / MASTOIDS: Mild to moderate mucosal thickening seen in the ethmoids. Mild to moderate mucosal thickening seen in the mastoids on the right. Mild noted on the left. ADDITIONAL FINDINGS: Atherosclerotic disease is seen in the anterior and posterior circulation. There is suggestion of a subcutaneous scar in the right frontal region superiorly. No definitive signs of underlying calvarial fracture. IMPRESSION: 1. No focal mass, hemorrhage, hydrocephalus, or acute, large territorial infarct. Signer Name: Shad Downing MD, III Signed: 12/11/2019 10:29 PM Workstation Name: [id number] Transcribed By: Dictated By: Shad Downing MD Electronically Authenticated By: Shad Downing MD Signed Date/Time: 12/11/192228 DD/ 25 TD/TT: - Differential Diagnosis Alcohol intoxication, symptomatic anemia Critical care attestation.: If time is entered above; I have spent that time in minutes in the direct care of this critically ill patient, excluding procedure time. ED Disposition Clinical Impression: Alcohol intoxication Disposition: DC-01 TO HOME OR SELFCARE Is pt being admited?: No Does the pt Need Aspirin: No Condition: Stable Instructions: Alcohol Intoxication (ED) Additional Instructions: Return to the emergency department should you develop worsening symptoms, inability to tolerate food or liquids, high fever or any other concerns Referrals: PRIMARY CARE, [Primary Care Provider] - 3-5 Days Time of Disposition: 01:29 (d/c to family or when etoh <0.08)
[2019-12-11 21:31] LABS: Hematocrit 41.1 % (35.5-45.6); Hemoglobin 13.8 gm/dl (11.8-15.2); Mean Corpuscular HGB Conc 34 % (32-34); Mean Corpuscular Volume 104 fl (84-94); Platelet Count 121 K/mm3 (140-440); Red Blood Count 3.96 M/mm3 (3.65-5.03); Red Cell Distribution Width 13.8 % (13.2-15.2)
[2019-12-11 22:01] LABS: Creatine Kinase MB 1.7 ng/mL (0.0-4.0)
[2019-12-11 22:03] LABS: Alanine Aminotransferase 169 units/L (7-56); Albumin 3.9 g/dL (3.9-5); BUN/Creatinine Ratio 14; Blood Urea Nitrogen 13 mg/dL (9-20); Calcium 9.1 mg/dL (8.4-10.2); Hemolysis Index 21
[2019-12-11 22:26] LABS: Basophils % (Manual) 0 % (0.0-1.8); Eosinophils % (Manual) 0 % (0.0-4.3); Total Cells Counted 100
--- NOTE | 2019-12-11 22:33 | Cat Scan Report ---
. CT head/brain wo con INDICATION / CLINICAL INFORMATION: 64 years Male; Patient complains of lightheadedness. TECHNIQUE: Routine CT head without contrast. All CT scans at this location are performed using CT dos e reduction for ALARA by means of automated exposure control. COMPARISON: 11/14/2019 FINDINGS: BRAIN / INTRACRANIAL CONTENTS: No acute hemorrhage, mass effect, midline shift, hydrocephalus, or acu te, large territorial infarct. Mild cerebral atrophy noted. There are minimal areas of decreased attenuation in the white matter of the cerebral hemispheres. The se are nonspecific findings and may be related to microangiopathy (hypertension, diabetes, atheroscle rosis), given the patient's age. CRANIOCERVICAL JUNCTION: No significant abnormality. ORBITS: No significant abnormality of visualized orbits. SINUSES / MASTOIDS: Mild to moderate mucosal thickening seen in the ethmoids. Mild to moderate mucosa l thickening seen in the mastoids on the right. Mild noted on the left. ADDITIONAL FINDINGS: Atherosclerotic disease is seen in the anterior and posterior circulation. There is suggestion of a subcutaneous scar in the right frontal region superiorly. No definitive sign s of underlying calvarial fracture. IMPRESSION: 1. No focal mass, hemorrhage, hydrocephalus, or acute, large territorial infarct. Signer Name: Shad Downing MD, III Signed: 12/11/2019 10:29 PM Workstation Name: [email or web address]
[2019-12-11 22:35] LABS: Ovalocytes Rare; Platelet Estimate Consistent w Auto
[2019-12-11] MEDS ORDERED: THIAMINE 100 MG, FOLIC ACID 1 MG, MULTIPLE VITAMIN INJ, ADULT 10 ML in SODIUM CHLORIDE ... IV ONE (22:41)
[2019-12-11] MEDS ORDERED: MAGNESIUM SULFATE 2 GM/50 ML BAG IV ONE (22:41)
[2019-12-12 06:31] VITALS: BP 115/72
== END 2019-12-12 07:08 | disposition home or self-care (01) ==
LOC: ED 18:35
DX: F10.129 Alcohol abuse with intoxication, unspecified (principal); R42 Dizziness and giddiness; I10 Essential (primary) hypertension; E11.9 Type 2 diabetes mellitus without complications; Z90.49 Acquired absence of other specified parts of digestive tract; Z90.89 Acquired absence of other organs; F17.200 Nicotine dependence, unspecified, uncomplicated; Z79.1 Long term (current) use of non-steroidal anti-inflammatories (NSAID); Z79.899 Other long term (current) drug therapy; Z88.8 Allergy status to other drugs, medicaments and biological substances
CPT/HCPCS: 36415; 70450; 80053; 82550; 82553; 82962; 84484; 85007; 85025; 93005; 96365; 96366; 96368; 99284; J3411; J3475; J7030; 80320; 96361; G0480

== ENCOUNTER 2021-04-16 12:35 | Emergency (ER) | payer OTHER ==
[2021-04-16] MEDS ORDERED: SODIUM CHLORIDE 0.9% 1000 ML 1,000 ML IV ONE (12:41)
[2021-04-16 12:43] VITALS: BP 134/84
[2021-04-16 14:06] LABS: Basophils % (Auto) 0.8 % (0.0-1.8); Eosinophils % (Auto) 0.4 % (0.0-4.3); Hematocrit 48.6 % (35.5-45.6); Hemoglobin 16.5 gm/dl (11.8-15.2); Lymphocytes # (Auto) 1.6 K/mm3 (1.2-5.4); Lymphocytes % (Auto) 41.7 % (13.4-35.0); Mean Corpuscular HGB Conc 34 % (32-34); Mean Corpuscular Volume 99 fl (84-94); Monocytes # (Auto) 0.2 K/mm3 (0.0-0.8); Monocytes % (Auto) 5.7 % (0.0-7.3); Platelet Count 274 K/mm3 (140-440); Red Cell Distribution Width 14.7 % (13.2-15.2)
[2021-04-16 14:58] LABS: Alanine Aminotransferase 15 units/L (7-56); Albumin 4.8 g/dL (3.9-5); BUN/Creatinine Ratio 14; Blood Urea Nitrogen 11 mg/dL (9-20); Calcium 9.6 mg/dL (8.4-10.2); Hemolysis Index 26
--- NOTE | 2021-04-16 15:09 | Emergency Department Report ---
ED General Adult HPI - General Chief complaint: Altered Mental Status Stated complaint: ALCOHOL Time Seen by Provider: 04/16/21 12:41 Source: EMS Mode of arrival: Stretcher Limitations: Altered Mental Status, Physical Limitation - History of Present Illness Initial comments: alcohol abuse, intoxciation, visitng from [place], his sister called EMS for AMS . denies any SI or HI -: days(s) Severity scale (0 -10): 0 Associated Symptoms: denies: denies other symptoms, confusion, chest pain, cough, headaches, loss of appetite, malaise, nausea/vomiting - Related Data Previous Rx's Medication Instructions Recorded Last Taken Type Multivitamin with Folic Acid [[facility] 400 mcg PO QDAY #30 tablet 07/21/19 Unknown Rx One Daily Essential Tablet] metFORMIN [Glucophage] 500 mg PO BID #60 tablet 07/21/19 Unknown Rx HYDROcodone/APAP 5-325 [[place] 1 each PO Q6HR PRN #10 tablet 10/31/19 Unknown Rx 5-325 mg TAB] Ibuprofen [Motrin 600 MG tab] 600 mg PO Q8H PRN #14 tablet 10/31/[address] [Depakote Dr] 250 mg PO BID #60 tablet 11/19/19 Unknown Rx Melatonin [Melatonin 5MG TAB] 5 mg PO QHS PRN #30 tablet 11/19/19 Unknown Rx Sertraline [Zoloft] 25 mg PO QDAY #30 tablet 11/19/19 Unknown Rx lisinopriL [Zestril TAB] 10 mg PO QDAY #30 tablet 11/19/19 Unknown Rx traZODone [Desyrel] 75 mg PO QHS #30 tablet 11/19/19 Unknown Rx Allergies Allergy/AdvReac Type Severity Reaction Status Date / Time haloperidol [From Haldol] Allergy Rash Verified 11/15/19 07:50 squash Allergy Rash Verified 11/15/19 07:50 ED Review of Systems ROS: Stated complaint: ALCOHOL Other details as noted in HPI Constitutional: denies: chills, fever Eyes: denies: eye pain, eye discharge, vision change ENT: denies: ear pain, throat pain Respiratory: denies: cough, shortness of breath, wheezing Cardiovascular: denies: chest pain, palpitations Endocrine: no symptoms reported Gastrointestinal: denies: abdominal pain, nausea, diarrhea Genitourinary: denies: urgency, dysuria Musculoskeletal: denies: back pain, joint swelling, arthralgia Skin: denies: rash, lesions Neurological: denies: headache, weakness, paresthesias Psychiatric: denies: anxiety, depression Hematological/Lymphatic: denies: easy bleeding, easy bruising ED Past Medical Hx - Past Medical History Hx Hypertension: Yes Hx Congestive Heart Failure: No Hx Diabetes: Yes Hx Renal Disease: No Hx Arthritis: No Hx Seizures: No Hx Psychiatric Treatment: Yes (PTSD, Depression) Hx Asthma: No Hx COPD: No Hx Dementia: No Additional medical history: Glaucoma, coronary artery disease - Surgical History Hx Coronary Stent: Yes (x 2) Hx Cholecystectomy: No Hx Appendectomy: Yes Additional Surgical History: tonsillectomy, RLE trauma - Social History Smoking Status: Current Every Day Smoker (3 cigarettes daily) Substance Use Type: None (Denies illicit drug use), Alcohol (Occasional) - Medications Home Medications: Home Medications Medication Instructions Recorded Confirmed Last Taken Type Multivitamin with Folic Acid [[facility] 400 mcg PO QDAY #30 tablet 07/21/19 11/16/19 Unknown Rx One Daily Essential Tablet] metFORMIN [Glucophage] 500 mg PO BID #60 tablet 07/21/19 11/16/19 Unknown Rx HYDROcodone/APAP 5-325 [[place] 1 each PO Q6HR PRN #10 tablet 10/31/19 11/16/19 Unknown Rx 5-325 mg TAB] Ibuprofen [Motrin 600 MG tab] 600 mg PO Q8H PRN #14 tablet 10/31/19 11/16/[address] [Haley Carmichael] 250 mg PO BID #60 tablet 11/19/19 Unknown Rx Melatonin [Melatonin 5MG TAB] 5 mg PO QHS PRN #30 tablet 11/19/19 Unknown Rx Sertraline [Zoloft] 25 mg PO QDAY #30 tablet 11/19/19 Unknown Rx lisinopriL [Zestril TAB] 10 mg PO QDAY #30 tablet 11/19/19 Unknown Rx traZODone [Desyrel] 75 mg PO QHS #30 tablet 11/19/19 Unknown Rx ED Physical Exam - General Limitations: Altered Mental Status, Physical Limitation General appearance: alert, appears intoxicated - Head Head exam: Present: atraumatic, normocephalic - Eye Eye exam: Present: normal appearance - ENT ENT exam: Present: mucous membranes moist - Neck Neck exam: Present: normal inspection - Respiratory Respiratory exam: Present: normal lung sounds bilaterally. Absent: respiratory distress - Cardiovascular Cardiovascular Exam: Present: regular rate, normal rhythm. Absent: systolic murmur, diastolic murmur, rubs, gallop - GI/Abdominal GI/Abdominal exam: Present: soft, normal bowel sounds - Rectal Rectal exam: Present: deferred - Extremities Exam Extremities exam: Present: normal inspection - Back Exam Back exam: Present: normal inspection - Neurological Exam Neurological exam: Present: alert, oriented X3 - Psychiatric Psychiatric exam: Present: normal affect, normal mood - Skin Skin exam: Present: warm, dry, intact, normal color. Absent: rash ED Course Vital Signs 04/16/21 12:42 Temperature 98.3 F Pulse Rate 90 Respiratory 16 Rate Blood Pressure 134/84 [Left] O2 Sat by Pulse 100 Oximetry - Reevaluation(s) Reevaluation #1: 04/16/21 15:07 fluids given and banana bag , pt is awake but intoxciated denies any SI OR HI , took his IV out and disppeared ED Medical Decision Making - Lab Data Result diagrams: 04/16/21 13:16 04/16/21 13:16 Critical care attestation.: If time is entered above; I have spent that time in minutes in the direct care of this critically ill patient, excluding procedure time. ED Disposition Clinical Impression: Alcohol abuse Disposition: 07 LEFT AWOL/ELOPED Is pt being admited?: No Does the pt Need Aspirin: No Condition: Stable Instructions: Alcohol Use Disorder Referrals: PRIMARY CARE, [Primary Care Provider] - 3-5 Days
== END 2021-04-16 14:38 | disposition left against medical advice (07) ==
LOC: ED 12:35
DX: R41.82 Altered mental status, unspecified (principal); F10.10 Alcohol abuse, uncomplicated; Y90.9 Presence of alcohol in blood, level not specified
CPT/HCPCS: 36415; 80053; 80320; 82550; 84484; 85025; 96360; 99283; G0480

== ENCOUNTER 2021-04-19 11:58 | Emergency (ER) | payer OTHER ==
[2021-04-19] MEDS ORDERED: LACTATED RINGERS 1,000 ML IV ONE (12:18)
[2021-04-19] MEDS ORDERED: ONDANSETRON 4 MG/2 ML INJ IV ONE (12:18)
--- NOTE | 2021-04-19 12:21 | Emergency Department Report ---
ED General Adult HPI - General Chief complaint: Medical Clearance Stated complaint: ETOH Time Seen by Provider: 04/19/21 12:14 Source: EMS Mode of arrival: Stretcher Limitations: No Limitations - History of Present Illness Initial comments: Patient was brought in by ambulance secondary to visual changes. EMS states that they were called because the patient "could not see." When they got on scene, he only complained of not feeling well. He had been drinking and they thought that he was clinically intoxicated. Patient was brought here. Upon arrival here, the patient tells me that he does not feel well but "does not know why." I asked him how he does not feel well and he states "I do not know." When asked him if he is in pain he responds that he does not know. When asked him if he is having any trouble breathing he also responds that he does not know. He does admit to nausea but no vomiting. He admits to alcohol consumption. He denies visual changes to me. Severity scale (0 -10): 0 - Related Data Previous Rx's Medication Instructions Recorded Last Taken Type Multivitamin with Folic Acid [[facility] 400 mcg PO QDAY #30 tablet 07/21/19 Unknown Rx One Daily Essential Tablet] metFORMIN [Glucophage] 500 mg PO BID #60 tablet 07/21/19 Unknown Rx HYDROcodone/APAP 5-325 [[place] 1 each PO Q6HR PRN #10 tablet 10/31/19 Unknown Rx 5-325 mg TAB] Ibuprofen [Motrin 600 MG tab] 600 mg PO Q8H PRN #14 tablet 10/31/19 Unknown Rx Divalproex [[place]aley [place]] 250 mg PO BID #60 tablet 11/19/19 Unknown Rx Melatonin [Melatonin 5MG TAB] 5 mg PO QHS PRN #30 tablet 11/19/19 Unknown Rx Sertraline [Zoloft] 25 mg PO QDAY #30 tablet 11/19/19 Unknown Rx lisinopriL [Zestril TAB] 10 mg PO QDAY #30 tablet 11/19/19 Unknown Rx traZODone [Desyrel] 75 mg PO QHS #30 tablet 11/19/19 Unknown Rx Allergies Allergy/AdvReac Type Severity Reaction Status Date / Time haloperidol [From Haldol] Allergy Rash Verified 11/15/19 07:50 squash Allergy Rash Verified 11/15/19 07:50 ED Review of Systems ROS: Stated complaint: ETOH Other details as noted in HPI Comment: Unobtainable due to pts medical conditions (Acute alcohol intoxication) ED Past Medical Hx - Past Medical History Hx Hypertension: Yes Hx Congestive Heart Failure: No Hx Diabetes: Yes Hx Renal Disease: No Hx Arthritis: No Hx Seizures: No Hx Psychiatric Treatment: Yes (PTSD, Depression) Hx Asthma: No Hx COPD: No Hx Dementia: No Additional medical history: Glaucoma, coronary artery disease - Surgical History Hx Coronary Stent: Yes (x 2) Hx Cholecystectomy: No Hx Appendectomy: Yes Additional Surgical History: tonsillectomy, RLE trauma - Family History Family history: hypertension - Social History Smoking Status: Current Every Day Smoker (We discussed tobacco cessation) Substance Use Type: Alcohol (Occasional) - Medications Home Medications: Home Medications Medication Instructions Recorded Confirmed Last Taken Type Multivitamin with Folic Acid [[facility] 400 mcg PO QDAY #30 tablet 07/21/19 11/16/19 Unknown Rx One Daily Essential Tablet] metFORMIN [Glucophage] 500 mg PO BID #60 tablet 07/21/19 11/16/19 Unknown Rx HYDROcodone/APAP 5-325 [[place] 1 each PO Q6HR PRN #10 tablet 10/31/19 11/16/19 Unknown Rx 5-325 mg TAB] Ibuprofen [Motrin 600 MG tab] 600 mg PO Q8H PRN #14 tablet 10/31/19 11/16/[address] [Depakote Dr] 250 mg PO BID #60 tablet 11/19/19 Unknown Rx Melatonin [Melatonin 5MG TAB] 5 mg PO QHS PRN #30 tablet 11/19/19 Unknown Rx Sertraline [Zoloft] 25 mg PO QDAY #30 tablet 11/19/19 Unknown Rx lisinopriL [Zestril TAB] 10 mg PO QDAY #30 tablet 11/19/19 Unknown Rx traZODone [Desyrel] 75 mg PO QHS #30 tablet 11/19/19 Unknown Rx ED Physical Exam - General Limitations: Altered Mental Status (Patient is clinically intoxicated and a poor historian), Other (Pulse ox noted and normal) General appearance: alert, in no apparent distress, other (Disheveled and unk empt) - Head Head exam: Present: atraumatic, normocephalic - Eye Eye exam: Present: normal appearance, PERRL, EOMI. Absent: scleral icterus - ENT ENT exam: Present: mucous membranes dry, normal external ear exam - Neck Neck exam: Present: normal inspection. Absent: meningismus - Respiratory Respiratory exam: Present: wheezes (Bilateral). Absent: respiratory distress - Cardiovascular Cardiovascular Exam: Present: regular rate, normal rhythm - GI/Abdominal GI/Abdominal exam: Present: soft. Absent: distended, tenderness - Extremities Exam Extremities exam: Present: normal capillary refill - Back Exam Back exam: Absent: CVA tenderness (R), CVA tenderness (L) - Neurological Exam Neurological exam: Present: altered (Clinically intoxicated), reflexes normal - Psychiatric Psychiatric exam: Present: normal affect - Skin Skin exam: Present: warm, dry ED Course Vital Signs 04/19/21 04/19/21 04/19/21 12:01 12:34 12:49 Temperature 98.2 F Pulse Rate 82 83 Respiratory 16 18 9 L Rate Blood Pressure Blood Pressure 128/80 [Right] O2 Sat by Pulse 99 96 95 Oximetry 04/19/21 04/19/21 04/19/21 13:00 13:16 13:30 Temperature Pulse Rate 81 79 77 Respiratory 13 21 16 Rate Blood Pressure Blood Pressure [Right] O2 Sat by Pulse 100 100 100 Oximetry 04/19/21 04/19/21 04/19/21 13:46 14:00 14:16 Temperature Pulse Rate 78 90 83 Respiratory 17 16 22 Rate Blood Pressure 126/76 Blood Pressure [Right] O2 Sat by Pulse 98 98 100 Oximetry 04/19/21 04/19/21 04/19/21 14:30 14:46 15:00 Temperature Pulse Rate 80 81 82 Respiratory 15 16 17 Rate Blood Pressure 128/74 113/65 107/69 Blood Pressure [Right] O2 Sat by Pulse 100 99 96 Oximetry 04/19/21 04/19/21 04/19/21 15:16 15:30 15:46 Temperature Pulse Rate 83 88 88 Respiratory 18 13 17 Rate Blood Pressure 113/69 129/86 135/78 Blood Pressure [Right] O2 Sat by Pulse 98 98 96 Oximetry 04/19/21 16:47 Temperature 98.5 F Pulse Rate Respiratory Rate Blood Pressure Blood Pressure [Right] O2 Sat by Pulse Oximetry - Reevaluation(s) Reevaluation #1: 04/19/21 12:21 IV labs ordered. Old records reviewed. Reevaluation #2: 04/19/21 14:02 Labs are noted. Patient will be observed until clinically sober and then discharged. 04/19/21 18:16 Once the patient was clinically sober, he was discharged. ED Medical Decision Making - Lab Data Result diagrams: 04/19/21 12:27 - Medical Decision Making Patient presents with generalized malaise and not feeling well. Is found to be acutely intoxicated. There is no obvious metabolic derangement otherwise. He does not have a fever or other symptoms of infectious pathology. There is no visible sign of trauma. Patient was referred to a PCP for recheck. We have discussed alcohol abuse and follow-up. Critical Care Time: No Critical care attestation.: If time is entered above; I have spent that time in minutes in the direct care of this critically ill patient, excluding procedure time. ED Disposition Clinical Impression: Acute alcohol intoxication Qualifiers: Complication of substance-induced condition: uncomplicated Qualified Code(s): F10.920 - Alcohol use, unspecified with intoxication, uncomplicated Disposition: 01 HOME / SELF CARE / HOMELESS Is pt being admited?: No Condition: Stable Additional Instructions: Seek medical attention to stop drinking alcohol. Return for problems. Follow- up with a primary care physician as referred. Referrals: GOKUL TORREZ MD [Staff Physician] - 3-5 Days
[2021-04-19 13:23] LABS: BUN/Creatinine Ratio 9; Blood Urea Nitrogen 7 mg/dL (9-20); Calcium 8.8 mg/dL (8.4-10.2); Hemolysis Index 6
[2021-04-19 16:47] VITALS: BP 135/78
== END 2021-04-19 16:47 | disposition home or self-care (01) ==
LOC: ED 11:58
DX: F10.129 Alcohol abuse with intoxication, unspecified (principal); I10 Essential (primary) hypertension; E11.9 Type 2 diabetes mellitus without complications; Z98.890 Other specified postprocedural states; F17.200 Nicotine dependence, unspecified, uncomplicated; Z91.09 Other allergy status, other than to drugs and biological substances
CPT/HCPCS: 36415; 80048; 83735; 96361; 96374; 99283; J2405; J7120; 80320; G0480

== ENCOUNTER 2021-06-15 14:32 | Emergency (ER) | payer OTHER ==
[2021-06-15 15:02] VITALS: BP 124/88
[2021-06-15 16:34] LABS: Alanine Aminotransferase 25 units/L (7-56); Albumin 4.3 g/dL (3.9-5); BUN/Creatinine Ratio 8; Blood Urea Nitrogen 7 mg/dL (9-20); Calcium 8.7 mg/dL (8.4-10.2); Hemolysis Index 22
[2021-06-15 16:45] LABS: INR 0.87 (0.87-1.13)
[2021-06-15 16:46] LABS: Partial Thromboplastin Time 27.1 Sec. (24.2-36.6)
[2021-06-15 16:47] LABS: Hematocrit 42.4 % (35.5-45.6); Mean Corpuscular HGB Conc 33 % (32-34); Mean Corpuscular Volume 104 fl (84-94); Platelet Count 201 K/mm3 (140-440); Red Blood Count 4.09 M/mm3 (3.65-5.03); Red Cell Distribution Width 15.7 % (13.2-15.2)
--- NOTE | 2021-06-15 16:58 | XRay Report ---
CHEST 1 VIEW 06/15/2021 3:49 PM INDICATION / CLINICAL INFORMATION: AMS. COMPARISON: 02/04/2018 FINDINGS: SUPPORT DEVICES: None. HEART / MEDIASTINUM: No significant abnormality. LUNGS / PLEURA: No significant pulmonary or pleural abnormality. No pneumothorax. ADDITIONAL FINDINGS: No significant additional findings. IMPRESSION: 1. No acute findings. Signer Name: Brant Matamoros DO Signed: 06/15/2021 4:54 PM Workstation Name: [email or web address]
--- NOTE | 2021-06-15 17:01 | Cat Scan Report ---
CT BRAIN: 06/15/2021 INDICATION / CLINICAL INFORMATION: AMS; frontal subcutanous hematoma. COMPARISON: CT brain 12/11/2019 FINDINGS: BRAIN/INTRACRANIAL STRUCTURES: Unenhanced CT images of the brain demonstrate no evidence of acute int racranial abnormality. Ventricles and sulci are prominent in size, consistent with diffuse cerebral atrophy. There is no evidence of large vessel territory ischemic injury, which, or mass. There are no abnormal extra-axial fluid collections. Atherosclerotic vascular calcifications are present in the distal internal carotid arteries and verte bral arteries. EXTRACRANIAL STRUCTURES: Unremarkable. IMPRESSION: No acute abnormality. Chronic and age-related changes. No significant change when compared to 12/11/[address] scans at this location are performed using dose reduction to ALARA by means of automated expos ure control. Signer Name: Chema Valdez MD Signed: 06/15/2021 4:56 PM Workstation Name: [id number]
--- NOTE | 2021-06-15 17:03 | Cat Scan Report ---
CT CERVICAL SPINE: 06/15/2021 INDICATION / CLINICAL INFORMATION: blunt head injury; AMS. COMPARISON: None available. FINDINGS: CT images of the cervical spine were obtained. Images are evaluated in the axial, coronal, and sagitt al planes. There is no evidence of acute abnormality. Right convex scoliosis of the cervical spine is present. V ertebral body height and alignment is otherwise unremarkable. Degenerative disc space narrowing is present at the C6-7 level. Diffuse disc bulging is present at C3 -4, C4-5, C5-6, and C6-7. CRANIOCERVICAL JUNCTION: Unremarkable. PARASPINAL STRUCTURES: No significant abnormality IMPRESSION: No acute abnormality. All CT scans at this location are performed using dose reduction to ALARA by means of automated expos ure control. Signer Name: Chema Valdez MD Signed: 06/15/2021 4:59 PM Workstation Name: [id number]
[2021-06-15] MEDS ORDERED: SODIUM CHLORIDE 0.9% 1000 ML 1,000 ML IV ONE (17:51)
[2021-06-15 21:03] LABS: Bilirubin,Urine NEG (Negative); Blood,Urine NEG (Negative); Color,Urine Colorless (Yellow); Protein,Urine <15 mg/dL mg/dL (Negative); Urobilinogen,Urine < 2.0 mg/dL (<2.0); WBC,Urine < 1.0 /HPF (0.0-6.0)
[2021-06-15 21:11] LABS: Amphetamine Screen,Urine PRESUMPTIVE NEGATIVE; Benzodiazepines Screen,Urine PRESUMPTIVE NEGATIVE; Cannabinoid Screen,Urine PRESUMPTIVE NEGATIVE; Cocaine Screen,Urine PRESUMPTIVE NEGATIVE; Methadone Screen,Urine PRESUMPTIVE NEGATIVE; Opiate Screen,Urine PRESUMPTIVE NEGATIVE
[2021-06-15 21:24] LABS: RBC,Urine < 1.0 /HPF (0.0-6.0)
[2021-06-15 22:08] LABS: BUN/Creatinine Ratio 8; Blood Urea Nitrogen 6 mg/dL (9-20); Calcium 9.3 mg/dL (8.4-10.2); Hemolysis Index 41
--- NOTE | 2021-06-15 22:14 | Emergency Department Report ---
ED General Adult HPI - General Chief complaint: Alcohol Stated complaint: ETOH Time Seen by Provider: 06/15/21 15:21 Source: patient, EMS Mode of arrival: Stretcher Limitations: No Limitations - History of Present Illness Initial comments: patient presents 2/2 being found sleeping in the lobby of a hotel. Patient denies any [place], CP, SOB, numbness, weakness, abd pain, back pain, dysuria, frequency, urgency. - Related Data Previous Rx's Medication Instructions Recorded Last Taken Type Multivitamin with Folic Acid [[facility] 400 mcg PO QDAY #30 tablet 07/21/19 Unknown Rx One Daily Essential Tablet] metFORMIN [Glucophage] 500 mg PO BID #60 tablet 07/21/19 Unknown Rx HYDROcodone/APAP 5-325 [[place] 1 each PO Q6HR PRN #10 tablet 10/31/19 Unknown Rx 5-325 mg TAB] Ibuprofen [Motrin 600 MG tab] 600 mg PO Q8H PRN #14 tablet 10/31/[address] [Haley Dr] 250 mg PO BID #60 tablet 11/19/19 Unknown Rx Melatonin [Melatonin 5MG TAB] 5 mg PO QHS PRN #30 tablet 11/19/19 Unknown Rx Sertraline [Zoloft] 25 mg PO QDAY #30 tablet 11/19/19 Unknown Rx lisinopriL [Zestril TAB] 10 mg PO QDAY #30 tablet 11/19/19 Unknown Rx traZODone [Desyrel] 75 mg PO QHS #30 tablet 11/19/19 Unknown Rx Allergies Allergy/AdvReac Type Severity Reaction Status Date / Time haloperidol [From Haldol] Allergy Rash Verified 06/15/21 15:02 squash Allergy Rash Verified 06/15/21 15:02 ED Review of Systems ROS: Stated complaint: ETOH Other details as noted in HPI Comment: All other systems reviewed and negative Constitutional: denies: chills, fever ED Past Medical Hx - Past Medical History Previous Medical History?: Yes Hx Hypertension: Yes Hx Congestive Heart Failure: No Hx Diabetes: Yes Hx Renal Disease: No Hx Arthritis: No Hx Seizures: No Hx Psychiatric Treatment: Yes (PTSD, Depression) Hx Asthma: No Hx COPD: No Hx Dementia: No Additional medical history: Glaucoma, coronary artery disease - Surgical History Hx Coronary Stent: Yes (x 2) Hx Cholecystectomy: No Hx Appendectomy: Yes Additional Surgical History: tonsillectomy, RLE trauma - Social History Smoking Status: Current Every Day Smoker - Medications Home Medications: Home Medications Medication Instructions Recorded Confirmed Last Taken Type Multivitamin with Folic Acid [[facility] 400 mcg PO QDAY #30 tablet 07/21/19 11/16/19 Unknown Rx One Daily Essential Tablet] metFORMIN [Glucophage] 500 mg PO BID #60 tablet 07/21/19 11/16/19 Unknown Rx HYDROcodone/APAP 5-325 [[place] 1 each PO Q6HR PRN #10 tablet 10/31/19 11/16/19 Unknown Rx 5-325 mg TAB] Ibuprofen [Motrin 600 MG tab] 600 mg PO Q8H PRN #14 tablet 10/31/19 11/16/[address] [Depakote Dr] 250 mg PO BID #60 tablet 11/19/19 Unknown Rx Melatonin [Melatonin 5MG TAB] 5 mg PO QHS PRN #30 tablet 11/19/19 Unknown Rx Sertraline [Zoloft] 25 mg PO QDAY #30 tablet 11/19/19 Unknown Rx lisinopriL [Zestril TAB] 10 mg PO QDAY #30 tablet 11/19/19 Unknown Rx traZODone [Desyrel] 75 mg PO QHS #30 tablet 11/19/19 Unknown Rx ED Physical Exam - General Limitations: No Limitations General appearance: in no apparent distress, other (somnolent but easily arousable to verbal stimuli; reeks of alcohol) - Head Head exam: Present: normocephalic, other (subcutaneous hematoma in mid frons) - Eye Eye exam: Present: PERRL, EOMI - ENT ENT exam: Present: mucous membranes moist, other (airway patent) - Neck Neck exam: Present: other (supple; no JVD) - Respiratory Respiratory exam: Present: other (good air entry, nml I:E, CTAB, no use ofAMOR) - Cardiovascular Cardiovascular Exam: Present: regular rate. Absent: rubs, gallop - GI/Abdominal GI/Abdominal exam: Present: soft, normal bowel sounds. Absent: distended, tenderness - Extremities Exam Extremities exam: Present: other (painless full ROM without deformity, tenderness, ecchymosis in all 4 extremities; pelvis stable and non tender) - Back Exam Back exam: Present: full ROM, other (no step offs). Absent: paraspinal tenderness, vertebral tenderness - Neurological Exam Neurological exam: Present: oriented X3, CN II-XII intact, other (GCS 14/15 ([id number])). Absent: motor sensory deficit - Psychiatric Psychiatric exam: Present: normal affect. Absent: homicidal ideation, suicidal ideation - Skin Skin exam: Present: warm, normal color ED Course Vital Signs 06/15/21 06/15/21 14:59 16:32 Pulse Rate 90 Respiratory 18 Rate Blood Pressure 124/88 [Left] O2 Sat by Pulse 96 99 Oximetry ED Medical Decision Making - Lab Data Result diagrams: 06/15/21 15:35 06/15/21 21:26 Laboratory Tests 06/15/21 06/15/21 06/15/21 15:35 15:35 15:35 WBC 3.5 L RBC 4.09 Hgb 14.0 Hct 42.4 MCV 104 H MCH 34 H MCHC 33 RDW 15.7 H Plt Count 201 Lymph % (Auto) Branch Services Manager [place] % (Auto) Branch Services Manager Eos % (Auto) Branch Services Manager Baso % (Auto) Branch Services Manager Lymph # (Auto) Branch Services Manager [place] # (Auto) Branch Services Manager Eos # (Auto) Branch Services Manager Baso # (Auto) Branch Services Manager Seg Neutrophils % Branch Services Manager Seg Neutrophils # Branch Services Manager PT 12.7 INR 0.87 APTT 27.1 Sodium 139 Potassium 4.0 Chloride 101.9 Carbon Dioxide 17 L Anion Gap 24 BUN 7 L Creatinine 0.9 Estimated GFR > 60 BUN/Creatinine Ratio 8 Glucose 254 H Calcium 8.7 Total Bilirubin < 0.20 AST 31 ALT 25 Alkaline Phosphatase 56 Troponin T < 0.010 Total Protein 6.8 Albumin 4.3 Albumin/Globulin Ratio 1.7 Urine Color Urine Turbidity Urine pH Ur Specific [place] Urine Protein Urine Glucose (UA) Urine Ketones Urine Blood Urine Nitrite Urine Bilirubin Urine Urobilinogen Ur Leukocyte Esterase Urine WBC (Auto) Urine RBC (Auto) Urine Opiates Screen Urine Methadone Screen Ur Barbiturates Screen Ur Phencyclidine Scrn Ur Amphetamines Screen U Benzodiazepines Scrn Urine Cocaine Screen U Marijuana (THC) Screen Drugs of Abuse Note Plasma/Serum Alcohol 06/15/21 06/15/21 06/15/21 15:35 21:26 21:26 WBC RBC Hgb Hct MCV MCH MCHC RDW Plt Count Lymph % (Auto) [place] % (Auto) Eos % (Auto) Baso % (Auto) Lymph # (Auto) [place] # (Auto) Eos # (Auto) Baso # (Auto) Seg Neutrophils % Seg Neutrophils # PT INR APTT Sodium 143 Potassium 4.2 Chloride 104.7 Carbon Dioxide 23 Anion Gap 20 BUN 6 L Creatinine 0.8 Estimated GFR > 60 BUN/Creatinine Ratio 8 Glucose 192 H Calcium 9.3 Total Bilirubin AST ALT Alkaline Phosphatase Troponin T Total Protein Albumin Albumin/Globulin Ratio Urine Color Urine Turbidity Urine pH Ur Specific [place] Urine Protein Urine Glucose (UA) Urine Ketones Urine Blood Urine Nitrite Urine Bilirubin Urine Urobilinogen Ur Leukocyte Esterase Urine WBC (Auto) Urine RBC (Auto) Urine Opiates Screen Urine Methadone Screen Ur Barbiturates Screen Ur Phencyclidine Scrn Ur Amphetamines Screen U Benzodiazepines Scrn Urine Cocaine Screen U Marijuana (THC) Screen Drugs of Abuse Note Plasma/Serum Alcohol 0.33 H 0.22 H 06/15/21 06/15/21 Unknown Unknown WBC RBC Hgb Hct MCV MCH MCHC RDW Plt Count Lymph % (Auto) [place] % (Auto) Eos % (Auto) Baso % (Auto) Lymph # (Auto) [place] # (Auto) Eos # (Auto) Baso # (Auto) Seg Neutrophils % Seg Neutrophils # PT INR APTT Sodium Potassium Chloride Carbon Dioxide Anion Gap BUN Creatinine Estimated GFR BUN/Creatinine Ratio Glucose Calcium Total Bilirubin AST ALT Alkaline Phosphatase Troponin T Total Protein Albumin Albumin/Globulin Ratio Urine Color Colorless Urine Turbidity Clear Urine pH 5.0 Ur Specific [place] 1.001 L Urine Protein <15 mg/dl Urine Glucose (UA) >=500 Urine Ketones Neg Urine Blood Neg Urine Nitrite Neg Urine Bilirubin Neg Urine Urobilinogen < 2.0 Ur Leukocyte Esterase Neg Urine WBC (Auto) < 1.0 Urine RBC (Auto) < 1.0 Urine Opiates Screen Presumptive negative Urine Methadone Screen Presumptive negative Ur Barbiturates Screen Presumptive negative Ur Phencyclidine Scrn Presumptive negative Ur Amphetamines Screen Presumptive negative U Benzodiazepines Scrn Presumptive negative Urine Cocaine Screen Presumptive negative U Marijuana (THC) Screen Presumptive negative Drugs of Abuse Note Disclamer Plasma/Serum Alcohol EKG: HR 78, SR, nml intervals, no significant ST changes in contiguous leads CXR: no acute cardiopulmonary process CT head: no acute intracranial process CT C-spine: no fracture or traumatic subluxation - Medical Decision Making Likely 2/2 alcohol intoxication. Pneumonia, ICH, UTI ruled out. not in DKA or HHNKS. ACS unlikely. Received NS 1L bolus x 1. Patient @ time of discharge AAOx3, GCS 15/15; ambulating without any problems. Patient is not driving. Critical care attestation.: If time is entered above; I have spent that time in minutes in the direct care of this critically ill patient, excluding procedure time. ED Disposition Clinical Impression: Alcohol intoxication Disposition: 01 HOME / SELF CARE / HOMELESS Is pt being admited?: No Does the pt Need Aspirin: No Condition: Stable Instructions: Binge-Drinking Information, Adult Additional Instructions: Return to the ER if your symptoms worsen Referrals: PRIMARY CARE, [Primary Care Provider] - 3-5 Days Time of Disposition: 22:19
--- NOTE | 2021-06-17 17:02 | Electrocardiograph Report ---
[facility] Test Date: 2021-06-15 Test Time: 22:38:51 Pat Name: REGGIE TORREZ Department: Room: Gender: M Stranner: BLESSING : 1955 Requested By: AKASH COPE Order Number: [id number] Reading MD: Andressa Leavitt Measurements Intervals [place] Rate: 78 P: 31 AR: 105 QRS: 56 QRSD: 99 T: -6 QT: 387 QTc: 442 Interpretive Statements Sinus rhythm Possible posterior infarct, old No previous ECG available for comparison Electronically Signed On 06-17-2021 17:02:18 EDT by Andressa Leavitt
== END 2021-06-15 23:00 | disposition home or self-care (01) ==
LOC: ED 14:32
DX: F10.129 Alcohol abuse with intoxication, unspecified (principal); Z88.6 Allergy status to analgesic agent; I10 Essential (primary) hypertension; E11.9 Type 2 diabetes mellitus without complications; Z90.89 Acquired absence of other organs; F17.200 Nicotine dependence, unspecified, uncomplicated; Z79.899 Other long term (current) drug therapy
CPT/HCPCS: 36415; 70450; 71045; 72125; 80048; 80053; 80307; 80320; 81001; 84484; 85025; 85610; 85730; 93005; 99284; G0480